=== PATIENT | female | born 1970 | race Caucasian/White ===

== ENCOUNTER 2016-08-11 22:24 | Emergency (ER) | payer OTHER ==
[~2016-08-11] VITALS: Ht 162.6 cm; Wt 77.5 kg
[~2016-08-11 22:24] MED LIST: ASPI81TA3 PO; DOCU-144 PO; ENAL20TA77 PO; FER325 PO; HYDR-3498 PO; HYDR-906 PO; IBUP-1542 PO; IBUP800T25 PO; METO-407 PO; NITR0.4T6 SL
[2016-08-11 22:26] VITALS: Ht 162.6 cm; Wt 77.5 kg
[2016-08-12] MEDS ORDERED: morphine 4 MG/ML VIAL IV STA (01:33)
[2016-08-12] MEDS ORDERED: ONDANSETRON 4 MG INJ IV STA (01:33)
[2016-08-12] MEDS ORDERED: SOD CHLORIDE 0.9% 1,000 ML IV STA (01:33)
[2016-08-12 01:46] LABS: URINE BLOOD (Dip) POC 2+ (NEGATIVE)
[2016-08-12] MEDS ORDERED: HYDROmorphONE 1 MG/ML SYG IV STA (02:47)
[2016-08-12 02:49] LABS: BASOPHILS % 0.3 % (0.0-2.0); EOSINOPHILS # 0.2 10^3/ul (0.0-0.5); EOSINOPHILS % 2.7 % (0.0-7.0); HEMATOCRIT 38.6 % (37.0-47.0); HEMOGLOBIN 12.8 g/dl (12.0-16.0); LYMPHOCYTES # 2.8 10^3/ul (0.8-2.9); LYMPHOCYTES % 38.7 % (15.0-51.0); MEAN CORPUSCULAR HEMOGLOBIN 27.1 pg (29.0-33.0); MEAN CORPUSCULAR VOLUME 81.9 fl (82.0-101.0); MEAN PLATELET VOLUME 10.6 fl (7.4-10.4); MONOCYTE # 0.6 10^3/ul (0.3-0.9); MONOCYTES % 8.3 % (0.0-11.0); NEUTROPHIL # 3.6 10^3/ul (1.6-7.5); PLATELET COUNT 168 10^3/UL (140-440); RED BLOOD COUNT 4.72 10^6/ul (4.20-5.40); RED CELL DISTRIBUTION WIDTH 15.6 % (11.5-14.5); UNCORRECTED WBC 7.2 10^3/ul (4.8-10.8); WHITE BLOOD COUNT 7.2 10^3/ul (4.8-10.8)
[2016-08-12 02:52] LABS: CONDITION 1; LH ANALYZER COMMENTS 1
--- NOTE | 2016-08-12 03:50 | RADRPT ---
PROCEDURE: US pelvis complete and transvaginal CLINICAL INDICATION: pelvic pain TECHNIQUE: Bautista scale and color Doppler imaging of the pelvis was performed. Endovaginal scanning was performed for more detailed evaluation of the endometrium. The images were reviewed on a PACS workstation. COMPARISON: 03/31/2016 FINDINGS: The uterus measures 6.4 x 3.4 x 5 centimeters. The right ovary was not seen and the left ovary anthony ures 4.7 x 2.3 x 2.3 centimeters. The endometrial stripe measures 4.6 millimeters in thickness and is unremarkable in appearance. No fibroids are seen. 3.1 x 1.9 x 1.7 cm minimally complex left ovari an cyst is seen. Cervical Nabothian cysts. Arterial flow is demonstrated in the left ovary. No vandana e fluid is seen. IMPRESSION: Nonvisualization of the right ovary. 3.1 cm left ovarian cyst. Arterial flow is demonstrated. RPTAT: [facility]BE Physician Salvador Date Time Electronically viewed and signed by Fanny Carolina Physician on 08/12/2016 03:50 JEFE/
--- NOTE | 2016-08-12 04:00 | ERD ---
ER Documentation Chief Complaint Date/Time DATE: 08/12/16 TIME: 03:55 Chief Complaint lower abd pain x 2days HPI Patient is a 46-year-old female with a past medical history of hypertension, kidney stones, DUB, appendectomy who presents to the emergency department with lower abdominal pain 2 days. Patient states that the pain is in her bilateral pelvic regions. Patient states that the pain is constant, sharp in nature, current pain is a 10 out of 10. Patient has any fevers but admits to chills. Patient is also feeling nauseous. Patient denies any upper abdominal pain, vomiting, dysuria, vaginal bleeding. Patient states that she has noted an increase in vaginal discharge. Patient describes her vaginal thick dark orange in color. Patient states that she does have a history of dysfunctional uterine bleeding. She was on Depo-Provera for 6 months and recently stopped in May 2016. Patient states that she was told that her VETERINARY ATTENDANT that she will need to have a hysterectomy, but she is unsure why. Patient states her LNMP was in June 2016, irregular periods. Patient denies any chest pain, shortness of breath, diaphoresis, arm pain, jaw pain or loss of consciousness. ROS All systems reviewed and are negative except as per history of present illness. Medications Home Meds Active Scripts Ondansetron (Ondansetron Odt) 4 Mg Tab.rapdis, 4 MG PO Q6H Y for NAUSEA AND/OR VOMITING, #10 TAB Prov:SALMA BOLAÑOS PA-C 08/12/16 Ibuprofen* (Ibuprofen*) 600 Mg Tablet, 600 MG PO Q6, #20 TAB Prov:SALMA BOLAÑOS PA-C 08/12/16 Ibuprofen* (Motrin*) 600 Mg Tab, 600 MG PO Q6H Y for PAIN AND OR ELEVATED TEMP, #30 TAB Prov:WENDY LARA NP 03/31/16 Docusate Sodium* (Colace*) 100 Mg Capsule, 100 MG PO BID, #60 CAP Prov:WENDY LARA NP 03/31/16 Ferrous Sulfate* (Ferrous Sulfate*) 325 Mg Tabec, 325 MG PO BID, #60 TAB Prov:WENDY LARA NP 03/31/16 Hydrocodone/Acetaminophen ([place] 5-325 Tablet) 1 Each Tablet, 1 TAB PO Q6H Y for PAIN, #20 TAB Prov:WENDY LARA [employer] 03/31/16 Ibuprofen* (Motrin*) 600 Mg Tab, 600 MG PO Q6H Y for PAIN AND OR ELEVATED TEMP, #30 TAB Prov:WENDY LARA. [employer] 09/30/15 Hydrocodone Bit-Acetaminophen* ([place]*) 5-325 Mg Tab, 1 TAB PO Q4H Y for sev, # 20 TAB Prov:WENDY LARA [employer] 09/30/15 Ibuprofen* (Motrin*) 800 Mg Tab, 800 MG PO Q6, #20 TAB Prov:NELLIE GAYTAN MD 04/10/15 Reported Medications Nitroglycerin* (Nitroglycerin* SL) 0.4 Mg Tab.subl, 0.4 MG SL Q5MIN Y for CHEST PAIN, BOTTLE 09/22/15 Metoprolol Tartrate* (Lopressor*) 100 Mg Tablet, 100 MG PO BID, #60 TAB 09/22/15 Aspirin* (Aspirin* Chew) 81 Mg Tab.chew, 81 MG PO DAILY, TAB.CHEW 04/24/14 Enalapril (Enalapril) 20 Mg Tablet, 20 MG PO DAILY 09/29/11 Allergies Allergies: Coded Allergies: No Known Allergies (Verified Allergy, Mild, 04/24/14) PMhx/Soc History of Surgery: Yes (Borderline DM) Anesthesia Reaction: No Hx Neurological Disorder: No Hx Respiratory Disorders: No Hx Cardiac Disorders: Yes (HEART PALPATATIONS, HTN ) Hx Psychiatric Problems: No Hx Miscellaneous Medical Probl: Yes (Dysfunctional Uterine bleeding ) Hx Alcohol Use: No Hx Substance Use: No Hx Tobacco Use: No Smoking Status: Never smoker FmHx Family History: No diabetes Physical Exam Vitals Vital Signs Date Time Temp Pulse Resp B/P Pulse Ox O2 Delivery O2 Flow Rate FiO2 08/12/16 04:47 97.8 70 18 128/80 96 Room Air 08/11/16 22:26 98.2 91 20 155/94 99 Physical Exam GENERAL: Well-developed, well-nourished female. No acute distress HEAD: Normocephalic, atraumatic. EYES: Pupils are equally reactive bilaterally. EOMs grossly intact. No conjunctival erythema. ENT: Moist mucous membranes. No uvula deviation. No kissing tonsils. NECK: Supple. No lymphadenopathy or thyromegaly. No meningismus. LUNG: Clear to auscultation bilaterally. No rhonchi, wheezing, rales or coarse breath sounds. HEART: Regular rate and rhythm. No murmurs, rubs or gallops. ABDOMEN: No scars, ecchymosis or rashes noted. Soft and nondistended. Tender to palpation in bilateral lower pelvic regions. Positive bowel sounds in all four quadrants. No rebound tenderness, no guarding. (-) McBurneys point tenderness. No CVA tenderness. BACK: No midline tenderness. EXTREMITIES: Equal pulses bilaterally. No peripheral clubbing, cyanosis or edema. No unilateral leg swelling. NEUROLOGIC: Alert and oriented. Moving all four extremities without any difficulty. Normal speech. Steady gait. SKIN: Normal color. Warm and dry. No rashes or lesions. Result Diagram: 08/12/16 0154 Results 24 hrs Laboratory Tests Test 08/12/16 01:46 08/12/16 01:54 Bedside Urine Blood 2+ Bedside Urine Glucose (UA) Negative Bedside Urine Ketones (LAB) Negative Bedside Urine Leukocyte Esterase (L Negative Bedside Urine Nitrite (LAB) Negative Bedside Urine Protein (LAB) Negative Bedside Urine pH (LAB) 7.0 Basophils # 0.010^3/ul Basophils % 0.3% Blood Morphology Comment Eosinophils # 0.210^3/ul Eosinophils % 2.7% Hematocrit 38.6% Hemoglobin 12.8g/dl Lymphocytes # 2.810^3/ul Lymphocytes % 38.7% Mean Corpuscular Hemoglobin 27.1pg Mean Corpuscular Hemoglobin Concent 33.0g/dl Mean Corpuscular Volume 81.9fl Mean Platelet Volume 10.6fl Monocytes # 0.610^3/ul Monocytes % 8.3% Neutrophils # 3.610^3/ul Neutrophils % 50.0% Nucleated Red Blood Cells # 0.010^3/ul Nucleated Red Blood Cells % 0.0/100WBC Platelet Count 22406^3/UL Red Blood Count 4.7210^6/ul Red Cell Distribution Width 15.6% White Blood Count 7.210^3/ul Current Medications Medications (Trade) Dose Ordered Sig/Roel Route PRN Reason Start Time Stop Time Status Last Admin Dose Admin Sodium Chloride (NS) 1,000 ml @ 500 mls/hr Q2H STAT IV 08/12/16 01:33 08/12/16 03:32 DC 08/12/16 01:53 Morphine Sulfate (morphine) 4 mg ONCE STAT IV 08/12/16 01:33 08/12/16 01:36 DC 08/12/16 01:54 Ondansetron HCl (Zofran Inj) 4 mg ONCE STAT IV 08/12/16 01:33 08/12/16 01:36 DC 08/12/16 01:54 Hydromorphone HCl (Dilaudid) 1 mg ONCE STAT IV 08/12/16 02:47 08/12/16 02:49 DC 08/12/16 02:55 Procedures/MDM ED COURSE: The patient was stable throughout ED course. I kept the patient and/or family informed of laboratory and diagnostic imaging results throughout the ED course. DIAGNOSTIC IMAGING: Read by radiologist. DIAGNOSTIC IMAGING REPORT Patient: VALENTINE DENNIS : 1970 Age: 46 Sex: F MR #: [id number] DOS: 08/12/16 0133 Ordering MD: SALMA BOLAÑOS PA-C Location: [facility] Room/Bed: PROCEDURE: US pelvis complete and transvaginal CLINICAL INDICATION: pelvic pain TECHNIQUE: Bautista scale and color Doppler imaging of the pelvis was performed. Endovaginal scanning was performed for more detailed evaluation of the endometrium. The images were reviewed on a PACS workstation. COMPARISON: 03/31/2016 FINDINGS: The uterus measures 6.4 x 3.4 x 5 centimeters. The right ovary was not seen and the left ovary measures 4.7 x 2.3 x 2.3 centimeters. The endometrial stripe measures 4.6 millimeters in thickness and is unremarkable in appearance. No fibroids are seen. 3.1 x 1.9 x 1.7 cm minimally complex left ovarian cyst is seen. Cervical Nabothian cysts. Arterial flow is demonstrated in the left ovary. No free fluid is seen. IMPRESSION: Nonvisualization of the right ovary. 3.1 cm left ovarian cyst. Arterial flow is demonstrated. RPTAT: [facility] Physician Salvador Date Time Electronically viewed and signed by Fanny Carolina Physician on 08/12/2016 03 :50 LE/ CC: SALMA BOLAÑOS PA-C MEDICATIONS GIVEN: IV fluids, Morphine, Dilaudid, Zofran Patient tolerated medication well with no adverse reactions. Patient reported improvement in pain. MEDICAL DECISION MAKING: This is 46-year-old female with a past medical history of hypertension, kidney stones, DUB, appendectomy who presents to the emergency department with lower abdominal pain 2 days. Vital signs were reviewed. Patient is afebrile. Abdominal exam revealed tenderness to palpation in bilateral pelvic regions. CBC showed no evidence of systemic infection or severe anemia. UA showed no evidence of acute infection, 2+ blood. Low suspicion for UTI, pyelonephritis or nephrolithiasis. Pelvic US showed 3.1 cm left ovarian cyst. Arterial flow is demonstrated. At this time, patient's presentation is most consistent with left ovarian cyst. I have a much lower clinical concern for acute coronary syndrome, bowel obstruction, bowel perforation, cholecystitis, choledocholithiasis, pancreatitis, PUD, gastritis, GERD, splenic rupture, diverticulitis, UTI, pyelonephritis, nephrolithiasis, appendicitis, constipation, , ovarian torsion or tubo-ovarian abscess. PRESCRIPTIONS: Ibuprofen, Zofran DISCHARGE: At this time, patient is stable for discharge and outpatient management. I have instructed the patient to follow-up with his/her primary care physician/ OBGYN in 1-2 days. I have instructed the patient to promptly return to the ER at any time for any new or worsening symptoms including increased pain, nausea, vomiting, diarrhea, fever, weakness or LOC. The patient and/or family expressed understanding of and agreement with this plan. All questions were answered. Home care instructions were provided. Departure Diagnosis: Primary Impression: Ovarian cyst Laterality: left Qualified Code: N83.202 - Cyst of left ovary Additional Impression: Pelvic pain Condition: Stable Patient Instructions: Ovarian Cyst Referrals: [facility] VETERINARY ATTENDANT REFERRAL LIST Additional Instructions: Call your PCP/OBGYN tomorrow for an appointment in the next 1-2 days. Return to the ED for any new or worsening symptoms including severe pain, fever, chills, nausea, vomiting. SALMA BOLAÑOS PA-C Aug 12, 2016 04:00
[2016-08-12] MEDS ORDERED: IBUP-1542 PO (04:01)
[2016-08-12] MEDS ORDERED: ONDA4TAB14 PO (04:02)
[2016-08-12 04:47] VITALS: BP 128/80; PULSE 70; RESP 18; TEMP 97.8
== END 2016-08-12 04:48 | disposition home or self-care (01) ==
LOC: FTE 22:24
DX: N83.202 Unspecified ovarian cyst, left side (principal); I10 Essential (primary) hypertension; Z79.82 Long term (current) use of aspirin
CPT/HCPCS: 36415; 76830; 76856; 81003; 85025; 96374; 96375; J1170; J2270; J2405; J7030; Z7502

== ENCOUNTER 2016-10-05 16:00 | Inpatient (IN) | payer OTHER ==
[~2016-10-05] VITALS: Ht 160 cm; Wt 76.4 kg
[~2016-10-05 16:00] MED LIST changes: +ONDA4TAB14 PO
[2016-11-02] VITALS (23 sets, daily range): BP systolic 106–136; BP diastolic 65–86; PULSE 62–107; RESP 10–20; Ht 160 cm; Wt 76.4 kg
--- NOTE | 2016-11-02 06:27 | PREOPHP ---
DATE OF ADMISSION: 11/02/2016 HISTORY OF PRESENT ILLNESS: This is a 46-year-old lady, 4, para 4, her last normal menstrual period was a few days prior to admission. She was admitted for MARGE and BSO. This patient has a history of very heavy menstrual period and on and off vaginal bleeding for the last 1 year and getting worse up to the time of admission. She had endometrial biopsy done and endometrial biopsy was benign. At one point, she was put on Depo-Provera to control the bleeding. She wanted to go for the above procedure. Her FSH were menopausal level and she had an abnormal Pap smear before, so she is for MARGE and BSO. She is having lower abdominal pain for the last 1 year, as well and the lower back and lower abdomen and to the legs. The procedures were explained to the patient and she understood everything totally. The risk, benefit and alternative was discussed with her as well. PAST PERSONAL HISTORY: No history of diabetes, TB, asthma. ALLERGIES: NO ALLERGIES. SOCIAL HISTORY: Patient does not smoke. She does not drink. MEDICATIONS: She takes enapril 20 mg daily. GYNECOLOGIC HISTORY: She had menarche at the age of 10, every 28 days interval , 3 to 4 days duration, and moderate in amount. FAMILY HISTORY: Mother has high blood pressure and diabetes. Brother and sister had cancer. PAST SURGICAL HISTORY: She had 1 section done before. That is the first . The other 3 were normal. REVIEW OF SYSTEMS: CARDIOVASCULAR: No chest pains. RESPIRATORY: No cough. GASTROINTESTINAL: No diarrhea, no vomiting. GENITOURINARY: No dysuria. PHYSICAL EXAMINATION: GENERAL: Reveals a conscious coherent lady and in not acute distress. VITAL SIGNS: Her blood pressure 120/80, pulse rate 80 per minute, respirations 16 per minute. BREASTS: Within normal limits. HEART: Within normal limits. LUNGS: Within normal limits. ABDOMEN: Soft. No organomegaly. PELVIC: Revealed the cervix to be firm, uterus of normal size, and adnexa were negative for masses. RECTAL: Confirmed the pelvic findings. EXTREMITIES: No pedal edema. ADMITTING DIAGNOSIS: Chronic pelvic pain and menometrorrhagia. PLAN: The patient was planned to have the above procedure. The procedures were explained to her and she understood everything totally. The risk, benefit and alternative were discussed with her as well. Dictated By: GERALD TRENT/ENRIQUETA Conf#: [id number] DID#: [id number] MTDD
[2016-11-02] MEDS ORDERED: DILT120C79 PO (07:15)
[2016-11-02] MEDS ORDERED: LIDOCAINE 2% (SDV) 5 ML INJ ONE (07:25)
[2016-11-02] MEDS ORDERED: PROPOFOL 20 ML ONE (07:25)
[2016-11-02] MEDS ORDERED: SUCCINYLCHOLINE CHLORIDE 100 MG/5 ML SYG IV ONE (07:25)
[2016-11-02] MEDS ORDERED: NEOSTIGMINE 3 MG/3 ML SYRINGE ONE ×2 (07:25→08:11)
[2016-11-02] MEDS ORDERED: ROCURONIUM 50 MG INJ ONE ×2 (07:25→08:11)
[2016-11-02] MEDS ORDERED: GLYCOPYRROLATE 0.4 MG INJ ONE ×2 (07:25→08:11)
[2016-11-02] MEDS ORDERED: MEPERIDINE 100 MG INJ ONE (07:26)
[2016-11-02] MEDS ORDERED: morphine (1 MG/ML) 10ML SYRINGE IV PRN ×2 (08:00)
[2016-11-02] MEDS ORDERED: DIPHENHYDRAMINE 50 MG INJ IV PRN ×2 (08:00→09:30)
[2016-11-02] MEDS ORDERED: EPHEDrine SULFATE 50 MG/5 ML SYG IV PRN (08:00)
[2016-11-02] MEDS ORDERED: METOCLOPRAMIDE 10 MG INJ IV PRN (08:00)
[2016-11-02] MEDS ORDERED: LABETALOL HCL 20MG INJ IV PRN (08:00)
[2016-11-02] MEDS ORDERED: MEPERIDINE 25 MG INJ IV PRN (08:00)
[2016-11-02] MEDS ORDERED: MIDAZOLAM 1 MG/ML 2 ML INJ IV PRN (08:00)
[2016-11-02] MEDS ORDERED: ONDANSETRON 4 MG INJ IV PRN ×2 (08:00→10:00)
[2016-11-02] MEDS ORDERED: hydrALAzine 20 MG INJ IV PRN (08:00)
[2016-11-02] MEDS ORDERED: HYDROmorphONE (0.2 MG/ML) 10ML SYG IV PRN (08:00)
[2016-11-02] MEDS ORDERED: FENTAnyl 50 MCG/ML VIAL IV PRN (08:00)
[2016-11-02] MEDS ORDERED: METOCLOPRAMIDE 10 MG INJ ONE (08:17)
[2016-11-02] MEDS ORDERED: EPHEDrine SULFATE 50 MG/5 ML SYG ONE (08:17)
[2016-11-02] MEDS ORDERED: ONDANSETRON 4 MG INJ ONE (08:17)
[2016-11-02] MEDS ORDERED: OXYCODONE/ACETAMINOPHEN (5/325) TAB PO PRN ×2 (09:30)
[2016-11-02] MEDS ORDERED: morphine 1 MG/ML 30 ML (PCA) IV SCH (09:30)
[2016-11-02] MEDS ORDERED: NALOXONE (0.4 MG/ML) INJ IV PRN (09:30)
[2016-11-02] MEDS: HYDROmorphONE (0.2 MG/ML) 10ML SYG IV PRN ×5 (09:37→10:35)
[2016-11-02] MEDS: FENTAnyl 50 MCG/ML VIAL IV PRN ×2 (09:47→10:04)
[2016-11-02] MEDS ORDERED: BISACODYL 10 MG SUPP PR PRN (10:00)
[2016-11-03 00:56] VITALS: BP 122/66; RESP 18
[2016-11-03 04:51] VITALS: BP 133/75; PULSE 102; RESP 19
[2016-11-03 05:11] LABS: ADD SCAN DIFF NO
[2016-11-03 05:20] LABS: BASOPHILS % 0.1 % (0.0-2.0); EOSINOPHILS % 0.2 % (0.0-7.0); HEMATOCRIT 38.4 % (37.0-47.0); HEMOGLOBIN 12.2 g/dl (12.0-16.0); LYMPHOCYTES # 1.5 10^3/ul (0.8-2.9); LYMPHOCYTES % 14.5 % (15.0-51.0); MEAN CORPUSCULAR HEMOGLOBIN 26.8 pg (29.0-33.0); MEAN CORPUSCULAR HGB CONC 31.8 g/dl (32.0-37.0); MEAN CORPUSCULAR VOLUME 84.4 fl (82.0-101.0); MEAN PLATELET VOLUME 11.9 fl (7.4-10.4); MONOCYTE # 0.9 10^3/ul (0.3-0.9); MONOCYTES % 8.5 % (0.0-11.0); NEUTROPHIL # 8.1 10^3/ul (1.6-7.5); NEUTROPHILS % 76.4 % (39.0-77.0); PLATELET COUNT 170 10^3/UL (140-415); RED BLOOD COUNT 4.55 10^6/ul (4.20-5.40); RED CELL DISTRIBUTION WIDTH 15.3 % (11.5-14.5); WHITE BLOOD COUNT 10.6 10^3/ul (4.8-10.8)
[2016-11-03 05:28] LABS: ALBUMIN 3.7 g/dl (3.3-4.9)
[2016-11-03 05:29] LABS: POTASSIUM 3.7 mmol/L (3.5-5.1)
[2016-11-03 05:31] LABS: ALBUMIN/GLOBULIN RATIO 1.12; BILIRUBIN,INDIRECT 0.5 mg/dl (0-1.1); BILIRUBIN,TOTAL 0.5 mg/dl (0.2-1.3); CREATININE 0.73 mg/dl (0.44-1.00)
[2016-11-03 05:32] LABS: CALCIUM 8.7 mg/dl (8.4-10.2)
[2016-11-03 07:43] VITALS: BP 124/74; RESP 20
[2016-11-03] MEDS: MAGNESIUM HYDROXIDE 30ML CUP PO SCH ×2 (09:11→21:31)
[2016-11-03] MEDS ORDERED: OXYCODONE/ACETAMINOPHEN (5/325) TAB PO PRN ×2 (10:00)
[2016-11-03] MEDS ORDERED: BISACODYL 10 MG SUPP PR ONE (12:00)
[2016-11-03] MEDS: ONDANSETRON 4 MG INJ IV PRN ×2 (13:48→20:07)
[2016-11-03] MEDS: OXYCODONE/ACETAMINOPHEN (5/325) TAB PO PRN (13:48)
[2016-11-03] MEDS ORDERED: MAGNESIUM HYDROXIDE 30ML CUP PO SCH (17:00)
[2016-11-03] MEDS ORDERED: BISACODYL 10 MG SUPP PR SCH (17:00)
[2016-11-03] MEDS: KETOROLAC 30 MG INJ IV PRN (17:14)
[2016-11-03 20:29] VITALS: BP 118/73; RESP 20
[2016-11-04] MEDS: KETOROLAC 30 MG INJ IV PRN ×2 (04:12→11:18)
--- NOTE | 2016-11-04 05:43 | OPR ---
DATE OF OPERATION: 11/02/2016 PREOPERATIVE DIAGNOSES: 1. Chronic pelvic pain. 2. Menorrhagia. 3. Perineal relaxation. POSTOPERATIVE DIAGNOSES: 1. Severe pelvic and abdominal adhesions. 2. Chronic pelvic pain. 3. Menorrhagia. 4. Perineal relaxation. SURGEON: Gerald Joshua MD BELLMAN DRIVER: Dr. Centeno ANESTHESIA: General. OPERATIONS PERFORMED: 1. Exploratory laparotomy. 2. Total abdominal hysterectomy. 3. Bilateral salpingo-oophorectomy. 4. Vaginal vault suspension. 5. Lysis of severe pelvic and abdominal adhesions. OPERATIVE TECHNIQUE: Under general anesthesia, the patient was prepped and draped in the usual [facility] ion for abdominal surgery. After checking for the effect of the anesthesia, a Pfannenstiel incision , 14 cm skin incision, was performed. The incision was carried from the skin up to the fascia. Upo n opening the skin up to the fascia, small blood vessels were noted to be oozing, and these were all cauterized. Fascia was opened transversely followed by splitting the muscles vertically and the pe ritoneum vertically. Upon opening the abdominal cavity, the omentum was noted to be attached all ov er the anterior parietal peritoneum. All these adhesions were lysed by sharp and blunt dissection d own both tubes and ovaries on the left and right side where they were attached to the pelvic wall. All these adhesions were lysed by sharp and blunt dissection. Then the self-retaining retractor was put in place. The bladder blade was put in place. The bowels were packed away from the operative field with the aid of 6 wet lap sponges. Then, the upper blade was put in place. Then, the two 8 i nch Kochers were placed at the paraovarian and paratubal ligament on the left and right side. These were used for traction. Then the left round ligament was grasped with 2 Kochers and cut. A stick tie with 0 Vicryl was used and tagged. The left infundibulopelvic ligament was grasped with 2 Heane y clamps and pulled back with a straight Mary and cut. A stick tie with 0 Vicryl was used followe d by Gian suture. Bleeders were checked, and there was no bleeding noted. Same thing was done on the right side. The right round ligament was grasped with 2 Kochers and cut. Stick tie with 0 Renan ryl was used and tagged. The right infundibulopelvic ligament was grasped with 2 Gian clamps and pulled back with a straight Mary and cut. At first a free tie with 0 Vicryl was used followed by Gian suture. Bleeders were checked, and there was no bleeding noted. Then, the broad ligament on both sides was skeletonized for the development of the bladder flap. Then the left uterine vessels were grasped with 2 Gian clamps and pulled back with a straight Mary and cut. A stick tie with 0 Vicryl was used on its clamp. Bleeders were checked, and there was no bleeding noted. Same thin g was done on the right side. Once again, the bladder was from the cervix by sharp and bl unt dissection. About 5 Kochers were placed at the site of the cervix, and on each Mary the tissu e was cut and a stick tie with 0 Vicryl was used. Then the cervix was noted to be long, about 3 inc hes long. Then the body of the uterus was excised. The remaining cervix was grasped with 2 single tooth tenaculum. Then, after putting 5 Kochers at the cervical tissue on each side, then the tissue was cut and a stick tie with 0 Vicryl was used. A piece of cervix was excised, and the remaining c ervix was grasped with 2 single toothed tenaculums. Then, once again, the cervix was from the bladder by sharp and blunt dissection. About 4 more Kochers at each paracervical tissue on the left and right side, and on its clamp, the tissue was cut and a stick tie with 0 Vicryl was used. Then, the cervicovaginal angle was brought to view. Then, the uterosacral ligament on the left chiki e was grasped with the Mary and cut. A stick tie with 0 Vicryl was used and tied. The same thing was done on the right side. Then, the cervix was cut again. As mentioned, the pelvis was noted to be very deep. Another piece of cervix was excised, and the remaining cervix was grasped with 2 sin gle tooth tenaculum. Then, the cervicovaginal angle was brought to view. The cervicovaginal angle was grasped with 2 Gian clamps, and the cervix was excised. On its clamp, a Gian suture was put in. Bleeders were checked, and there was no bleeding noted. Then, the remaining vagina was suture d with 0 Vicryl continuous suture used to reinforce the suture on 2 Gian clamps. The right angle of the vagina was sutured with the right paracervical tissue and in turn tied with the right round l igament for vaginal vault suspension. The same thing was done on the left side. Irrigation was don e to check for any bleeders, and there was no bleeding noted. After checking for any bleeders in wh ich there were none, as mentioned, both angles of the vagina were sutured with the paracervical tiss ue and in turn tied with the right round ligament, and so vaginal vault suspension was done on both sides. After checking for any bleeders in which there were none and after correct sponge count, nee dle count, and instrument count, the abdomen was closed in the usual fashion using 0 Vicryl for the peritoneum, 0 Vicryl for the muscles, for the fascia 0 Vicryl continuous stitch was used followed by a few [id number] sutures. For the subcutaneous tissue, it was closed with 3-0 Vicryl. The sk in was closed with 3-0 Vicryl. Subcuticular suture was used. The patient tolerated the procedure w ell. Estimated blood loss was about 200 mL. Vital signs were stable during and after the procedure . Dictated By: GERALD TRENT/ENRIQUETA Conf#: [id number] DID#: [id number] CC: GERALD OJSHUA MD;*EndCC*
[2016-11-04 07:40] VITALS: BP 132/76; RESP 20
[2016-11-04] MEDS: MAGNESIUM HYDROXIDE 30ML CUP PO SCH (09:00)
[2016-11-04] MEDS: DILTIAZEM (CD) 120 MG CAP PO SCH (09:12)
[2016-11-04] MEDS: METOPROLOL 100 MG TAB PO SCH ×2 (09:13→21:00)
[2016-11-04 09:45] VITALS: BP 124/78; PULSE 100; RESP 18
[2016-11-04] MEDS: ENALAPRIL 20 MG TAB PO SCH (10:02)
[2016-11-04 10:29] LABS: ADD SCAN DIFF NO; BASOPHILS % 0.2 % (0.0-2.0); EOSINOPHILS # 0.1 10^3/ul (0.0-0.5); EOSINOPHILS % 0.7 % (0.0-7.0); HEMATOCRIT 35.3 % (37.0-47.0); HEMOGLOBIN 11.8 g/dl (12.0-16.0); LYMPHOCYTES # 1.6 10^3/ul (0.8-2.9); LYMPHOCYTES % 16.4 % (15.0-51.0); MEAN CORPUSCULAR HEMOGLOBIN 28.1 pg (29.0-33.0); MEAN CORPUSCULAR HGB CONC 33.4 g/dl (32.0-37.0); MEAN PLATELET VOLUME 11.3 fl (7.4-10.4); MONOCYTES % 10.1 % (0.0-11.0); NEUTROPHIL # 6.9 10^3/ul (1.6-7.5); NEUTROPHILS % 72.2 % (39.0-77.0); PLATELET COUNT 153 10^3/UL (140-415); RED CELL DISTRIBUTION WIDTH 15.1 % (11.5-14.5); WHITE BLOOD COUNT 9.6 10^3/ul (4.8-10.8)
[2016-11-04 13:12] VITALS: BP 105/64; RESP 20
[2016-11-04] MEDS: OXYCODONE/ACETAMINOPHEN (5/325) TAB PO PRN (14:31)
[2016-11-04 19:40] VITALS: BP 117/74; RESP 18
[2016-11-05] MEDS: KETOROLAC 30 MG INJ IV PRN (05:23)
[2016-11-05 08:45] VITALS: BP 115/75; RESP 18
[2016-11-05] MEDS: DILTIAZEM (CD) 120 MG CAP PO SCH (09:11)
[2016-11-05] MEDS: ENALAPRIL 20 MG TAB PO SCH (09:12)
[2016-11-05] MEDS: METOPROLOL 100 MG TAB PO SCH (09:12)
[2016-11-05] MEDS ORDERED: BISACODYL 10 MG SUPP PR ONE (12:30)
[2016-11-05] MEDS ORDERED: MAGNESIUM HYDROXIDE 30ML CUP PO ONE (12:30)
[2016-11-05 13:10] LABS: ADD SCAN DIFF NO
[2016-11-05 13:19] LABS: BASOPHILS % 0.4 % (0.0-2.0); EOSINOPHILS # 0.3 10^3/ul (0.0-0.5); EOSINOPHILS % 2.5 % (0.0-7.0); HEMATOCRIT 38.6 % (37.0-47.0); HEMOGLOBIN 12.2 g/dl (12.0-16.0); LYMPHOCYTES # 2.3 10^3/ul (0.8-2.9); LYMPHOCYTES % 21.5 % (15.0-51.0); MEAN CORPUSCULAR HEMOGLOBIN 27.1 pg (29.0-33.0); MEAN CORPUSCULAR HGB CONC 31.6 g/dl (32.0-37.0); MEAN CORPUSCULAR VOLUME 85.8 fl (82.0-101.0); MEAN PLATELET VOLUME 11.3 fl (7.4-10.4); MONOCYTE # 0.8 10^3/ul (0.3-0.9); MONOCYTES % 7.9 % (0.0-11.0); NEUTROPHIL # 7.1 10^3/ul (1.6-7.5); NEUTROPHILS % 67.4 % (39.0-77.0); PLATELET COUNT 203 10^3/UL (140-415); RED CELL DISTRIBUTION WIDTH 15.2 % (11.5-14.5); WHITE BLOOD COUNT 10.5 10^3/ul (4.8-10.8)
[2016-11-05 13:25] LABS: POTASSIUM 3.6 mmol/L (3.5-5.1)
[2016-11-05 13:27] LABS: CREATININE 0.95 mg/dl (0.44-1.00)
[2016-11-05 13:28] LABS: CALCIUM 9.6 mg/dl (8.4-10.2)
--- NOTE | 2016-11-07 18:28 | DS ---
DATE OF ADMISSION: 11/02/2016 DATE OF DISCHARGE: 11/05/2016 This is a 46-year-old lady, 4, para 4. She was admitted for MARGE and BSO. HISTORY OF PRESENT ILLNESS: See dictated history and physical. PHYSICAL EXAMINATION: See dictated history and physical. ADMITTING DIAGNOSIS: Chronic pelvic pain and menometrorrhagia. The patient underwent a total abdominal hysterectomy, bilateral salpingo-oophorectomy, vaginal vault suspension and lysis of severe pelvic and abdominal adhesions. Patient tolerated the procedure well. She did have good postoperative course. The diet was advanced from liquid to general diet. She was discharged home on the third postoperative day on general diet and activity was restricted. She was told to come back to the clinic in 2 weeks. She was given prescription for pain. She was told to call the office if there is any problem or concern. FINAL DIAGNOSES: 1. moderate obesity 2. Chronic pelvic pain. 3. Adenomyosis. Dictated By: GERALD TRENT/ENRIQUETA Conf#: [id number] DID#: [id number] MTDJack
== END 2016-11-05 17:30 | disposition home or self-care (01) | DRG 743 ==
LOC: REC 11-02 05:54 → MS1 11-02 11:17
PROVIDERS: ADMIT Obstetrics & Gynecology; ATTEND Obstetrics & Gynecology
PROC: 0UTC0ZZ Resection of Cervix, Open Approach (ICD-10-PCS; 2016-11-02)
PROC: 0UT20ZZ Resection of Bilateral Ovaries, Open Approach (ICD-10-PCS; 2016-11-02)
PROC: 0UT70ZZ Resection of Bilateral Fallopian Tubes, Open Approach (ICD-10-PCS; 2016-11-02)
PROC: 0USG0ZZ Reposition Vagina, Open Approach (ICD-10-PCS; 2016-11-02)
PROC: 0UT90ZZ Resection of Uterus, Open Approach (ICD-10-PCS; principal; 2016-11-02 07:30)
DX: N92.0 Excessive and frequent menstruation with regular cycle (principal); R10.2 Pelvic and perineal pain; N81.89 Other female genital prolapse
CPT/HCPCS: 80048; 80053; 84702; 85025; 86850; 86900; 86901; 87086; 88305; J0330; J1170; J1885; J2175; J2270; J2405; J2710; J2765; J3010

== ENCOUNTER 2016-11-30 14:24 | Emergency (ER) | payer OTHER ==
[~2016-11-30] VITALS: Ht 160 cm; Wt 75.5 kg
[~2016-11-30 14:24] MED LIST changes: -ASPI81TA3 PO; +DILT120C79 PO; -DOCU-144 PO; -FER325 PO; -HYDR-3498 PO; -HYDR-906 PO; -IBUP-1542 PO; -IBUP800T25 PO; -NITR0.4T6 SL; -ONDA4TAB14 PO
[2016-11-30 15:14] VITALS: Ht 160 cm; Wt 75.5 kg
[2016-11-30] MEDS ORDERED: SODIUM CHLORIDE 0.9% 1L BAG IV* STA (18:05)
[2016-11-30] MEDS ORDERED: PIPER-TAZO 3.375 GM IV (PMX) 100 ML IVPB STA (18:05)
[2016-11-30] MEDS ORDERED: VANCOMYCIN 1 GM (PMX) 250 ML IVPB STA (18:05)
[2016-11-30 18:29] LABS: ADD SCAN DIFF NO
[2016-11-30 18:31] LABS: BASOPHILS % 0.3 % (0.0-2.0); EOSINOPHILS # 0.3 10^3/ul (0.0-0.5); EOSINOPHILS % 4.5 % (0.0-7.0); HEMATOCRIT 38.3 % (37.0-47.0); HEMOGLOBIN 12.6 g/dl (12.0-16.0); LYMPHOCYTES # 2.2 10^3/ul (0.8-2.9); LYMPHOCYTES % 37.2 % (15.0-51.0); MEAN CORPUSCULAR HGB CONC 32.9 g/dl (32.0-37.0); MEAN CORPUSCULAR VOLUME 85.1 fl (82.0-101.0); MEAN PLATELET VOLUME 11.7 fl (7.4-10.4); MONOCYTE # 0.5 10^3/ul (0.3-0.9); MONOCYTES % 7.8 % (0.0-11.0); PLATELET COUNT 177 10^3/UL (140-415); RED CELL DISTRIBUTION WIDTH 14.6 % (11.5-14.5)
[2016-11-30 18:40] LABS: ADD UMIC YES; URINE BILIRUBIN (Dip) NEGATIVE (NEGATIVE); URINE BLOOD (Dip) 2+ (NEGATIVE); URINE COLOR LT. YELLOW (YELLOW); URINE GLUCOSE (Dip) NEGATIVE (NEGATIVE); URINE KETONES (Dip) NEGATIVE (NEGATIVE); URINE LEUKOCYTE ESTERASE (Dip) NEGATIVE (NEGATIVE); URINE NITRITE (Dip) NEGATIVE (NEGATIVE); URINE TOTAL PROTEIN (Dip) NEGATIVE (NEGATIVE); URINE UROBILINOGEN (Dip) 0.2 E.U./dL (0.1-1.0)
[2016-11-30 18:46] LABS: ALBUMIN 4.5 g/dl (3.3-4.9); ALBUMIN/GLOBULIN RATIO 1.25; BILIRUBIN,INDIRECT 0.1 mg/dl (0-1.1); BILIRUBIN,TOTAL 0.1 mg/dl (0.2-1.3); CALCIUM 9.6 mg/dl (8.4-10.2); CREATININE 0.72 mg/dl (0.44-1.00); POTASSIUM 4.2 mmol/L (3.5-5.1); TOTAL PROTEIN 8.1 g/dl (6.1-8.1)
[2016-11-30 18:58] LABS: SQUAMOUS EPITHELIAL CELL,UR MODERATE
[2016-11-30 18:59] LABS: BACTERIA,URINE MANY; MUCUS,URINE MANY
[2016-11-30 19:00] VITALS: TEMP 98.6
[2016-11-30] MEDS ORDERED: morphine 4 MG/ML VIAL IV STA (19:10)
[2016-11-30 19:12] LABS: INR 1.02; PARTIAL THROMBOPLASTIN TIME 28.5 Sec (25.0-35.0); PROTIME 13.4 Sec (12.2-14.2)
[2016-11-30] MEDS ORDERED: SOD CHLORIDE 0.9% 100 ML ONE (20:07)
[2016-11-30] MEDS ORDERED: IOHEXOL 300MG/ML 150 ML BTL ONE (20:07)
--- NOTE | 2016-11-30 20:30 | ERD ---
ER Documentation Chief Complaint Date/Time DATE: 11/30/16 TIME: 20:22 Chief Complaint Pt with surgical incision pain after hysterectomy on 11/02/16. HPI 46-year-old female with a history of hypertension and endometriosis status post total abdominal hysterectomy on November 02, 2016 presenting with pain around her surgical site. She has had this pain for about 2 weeks. Pain is constant, nonradiating, dull and aching, sometimes sharp, worse with movement or straining with bowel movement, does not improve with anything. She does not have any associated hematuria or dysuria. She was seen by her surgeon 1 week ago for this pain and was told she had a mild infection and was given antibiotics, Cipro, which she took for 1 week. She has 1 dose left. However she does not feel like she has improved. She continues to have intermittent fevers and chills. She has mild nausea but no vomiting. She denies diarrhea, constipation, hematochezia, or melena. No vaginal discharge or bleeding. ROS All systems reviewed and are negative except as per history of present illness. Medications Home Meds Active Scripts Cephalexin* (Keflex*) 500 Mg Capsule, 500 MG PO TID for 7 Days, CAP Prov:MIRLANDE YANES MD 11/30/16 Reported Medications Diltiazem Hcl* (Diltiazem XT) 120 Mg Capsule.sa, 120 MG PO DAILY, #30 CAP 11/02/16 Metoprolol Tartrate* (Lopressor*) 100 Mg Tablet, 100 MG PO BID, #60 TAB 09/22/15 Enalapril (Enalapril) 20 Mg Tablet, 20 MG PO DAILY 09/29/11 Allergies Allergies: Coded Allergies: No Known Allergies (Verified Allergy, Mild, 11/30/16) PMhx/Soc History of Surgery: Yes (C SECTION, APPENDECTOMY, COLONOSCOPY, total abdominal hysterectomy) Anesthesia Reaction: No Hx Neurological Disorder: No Hx Respiratory Disorders: No Hx Cardiac Disorders: No Hx Psychiatric Problems: No Hx Miscellaneous Medical Probl: Yes (Hypertension, endometriosis) Hx Alcohol Use: No Hx Substance Use: No Hx Tobacco Use: No Smoking Status: Never smoker FmHx Family History: No diabetes Physical Exam Vitals Vital Signs Date Time Temp Pulse Resp B/P Pulse Ox O2 Delivery O2 Flow Rate FiO2 11/30/16 19:00 98.6 84 16 119/66 100 Room Air 11/30/16 15:14 99.5 115 22 154/92 99 Physical Exam Const: Well-appearing, no distress Head: Atraumatic Eyes: Normal Conjunctiva ENT: Normal External Ears, Nose and Mouth. Neck: Full range of motion..~ No meningismus. Resp: Clear to auscultation bilaterally Cardio: Regular rate and rhythm, no murmurs Abd: Surgical incision healed well. No erythema, fluctuance, induration. Soft, mild tenderness to palpation over bilateral lower quadrants over surgical incision, non distended. Normal bowel sounds Skin: No petechiae or rashes Back: No midline or flank tenderness Ext: No cyanosis, or edema Neur: Awake and alert Psych: Normal Mood and Affect Result Diagram: 11/30/16181411/30/161814 Results 24 hrs Laboratory Tests Test 11/30/16 18:00 11/30/16 18:15 Urine Color LT. YELLOW Urine Clarity SLIGHTLY CLOUDY Urine pH 5.5 Urine Specific [place] >=1.030 Urine Ketones NEGATIVE Urine Nitrite NEGATIVE Urine Bilirubin NEGATIVE Urine Urobilinogen 0.2 E.U./dL Urine Leukocyte Esterase NEGATIVE Urine Microscopic RBC 5-10/HPF Urine Microscopic WBC 0-2/HPF Urine Squamous Epithelial Cells MODERATE Urine Calcium Oxalate Crystals MANY Urine Bacteria MANY Urine Mucus MANY Urine Hemoglobin 2+ Urine Glucose NEGATIVE% Urine Total Protein NEGATIVE White Blood Count 6.010^3/ul Red Blood Count 4.5010^6/ul Hemoglobin 12.6g/dl Hematocrit 38.3% Mean Corpuscular Volume 85.1fl Mean Corpuscular Hemoglobin 28.0pg Mean Corpuscular Hemoglobin Concent 32.9g/dl Red Cell Distribution Width 14.6% Platelet Count 84007^3/UL Mean Platelet Volume 11.7fl Neutrophils % 50.0% Lymphocytes % 37.2% Monocytes % 7.8% Eosinophils % 4.5% Basophils % 0.3% Nucleated Red Blood Cells % 0.0/100WBC Neutrophils # 3.010^3/ul Lymphocytes # 2.210^3/ul Monocytes # 0.510^3/ul Eosinophils # 0.310^3/ul Basophils # 0.010^3/ul Nucleated Red Blood Cells # 0.010^3/ul Prothrombin Time 13.4Sec Prothrombin Time Ratio 1.0 INR International Normalized Ratio 1.02 Activated Partial Thromboplast Time 28.5Sec Sodium Level 138mmol/L Potassium Level 4.2mmol/L Chloride Level 105mmol/L Carbon Dioxide Level 26mmol/L Anion Gap 11 Blood Urea Nitrogen 13mg/dl Creatinine 0.72mg/dl Glucose Level 104mg/dl Lactic Acid Level 1.0mmol/L Calcium Level 9.6mg/dl Total Bilirubin 0.1mg/dl Direct Bilirubin 0.00mg/dl Indirect Bilirubin 0.1mg/dl Aspartate Amino Transf (AST/SGOT) 21IU/L Alanine Aminotransferase (ALT/SGPT) 33IU/L Alkaline Phosphatase 98IU/L Total Protein 8.1g/dl Albumin 4.5g/dl Globulin 3.60g/dl Albumin/Globulin Ratio 1.25 Current Medications Medications (Trade) Dose Ordered Sig/Roel Route PRN Reason Start Time Stop Time Status Last Admin Dose Admin Sodium Chloride 2340 ml 2,340 ml BOLUS OVER 2 HOURS STAT IV* 11/30/16 18:05 11/30/16 18:08 DC 11/30/16 18:34 Vancomycin HCl 250 ml @ 125 mls/hr ONCE STAT IVPB 11/30/16 18:05 11/30/16 20:04 DC 11/30/16 19:17 Piperacillin Sod/ Tazobactam Sod (Zosyn 3.375gm/ 100 ml (Pmx)) 100 ml @ 200 mls/hr ONCE STAT IVPB 11/30/16 18:05 11/30/16 18:34 DC 11/30/16 18:33 Morphine Sulfate (morphine) 4 mg ONCE STAT IV 11/30/16 19:10 11/30/16 19:11 DC 11/30/16 19:16 IV Flush 10 ml 10 ml STK-MED ONCE .ROUTE 11/30/16 20:07 11/30/16 20:08 DC 11/30/16 20:10 Sodium Chloride (NS) 100 ml @ ud STK-MED ONCE .ROUTE 11/30/16 20:07 11/30/16 20:08 DC 11/30/16 20:11 Iohexol (Omnipaque 300mg/ ml) 150 ml STK-MED ONCE .ROUTE 11/30/16 20:07 11/30/16 20:08 DC 11/30/16 20:11 Procedures/MDM Labs: CBC unremarkable CMP unremarkable Lactate within normal limits Urinalysis shows many bacteria, 0-2 WBCs, calcium oxalate crystals, many bacteria, 2+ hemoglobin [place] [id number] Radiology Main Line: [phone] DIAGNOSTIC IMAGING REPORT Patient: VALENTINE DENNIS : 1970 Age: 46 Sex: F MR #: [id number] DOS: 11/30/16 1805 Ordering MD: MIRLANDE YANES MD Location: E/R Room/Bed: PROCEDURE: CT Abdomen and Pelvis with contrast. CLINICAL INDICATION: Possible postop infection; hysterectomy 11/02/2016 TECHNIQUE: CT scan of the abdomen and pelvis with contrast was performed on a multi-detector high-resolution CT scanner. The patient was scanned following the intravenous administration of 100 cc of Omnipaque 300. Coronal and sagittal reformatted images were obtained from the axial source images. Images were reviewed on a high-resolution PACS workstation. The total exam CTDI equals 11.93 mGy and the total exam DLP equals 664.2 mGy-cm. One or more the following dose reduction techniques were utilized: Automated exposure control, adjustment of the mA/ or kV according to patient's size, or use of iterative reconstruction technique. COMPARISON: None. FINDINGS: CT abdomen: Mild dependent atelectasis at lung bases posteriorly. The heart size is normal , without pericardial thickening or effusion. There is approximate 3 mm oval low density structure too small to characterize in the upper dome of the liver posteriorly. No imaging follow-up of this is recommended. The spleen is normal in size and homogeneous in density. The stomach is partially collapsed, but is grossly unremarkable. The pancreas as visualized is normal. The gallbladder and biliary tree are unremarkable and there is no evidence for biliary dilatation. The adrenal glands are symmetric and normal. Nonspecific bilateral minimal hydronephrosis. No renal or ureteral stone is seen on this contrast-enhanced study. The aorta is of normal caliber. There is no retroperitoneal lymphadenopathy. The josh hepatis region is clear. The bowel and mesentery, as visualized, are equally unremarkable. Very small umbilical hernia containing fat only. CT pelvis: The small bowel loops situated within the pelvis are unremarkable. Hysterectomy. The pelvic sidewalls and inguinal regions are clear. The sigmoid colon and rectum are unremarkable. No mass, lymphadenopathy, or free fluid is seen. Minimal soft tissue stranding in region of vaginal cuff consistent with recent surgery. No focal fluid collection with contrast enhancing rim suggestive of pelvic abscess is seen. There is appearance of unremarkable ovaries. The bladder is normal. Soft tissue stranding in subcutaneous fat anterior pelvic wall consistent with recent surgery. Mild lumbar spondylosis. Degenerative changes at sacroiliac joints. Likely small bone island in right pubic body. IMPRESSION: Consistent with mild postoperative changes noted above. No evidence of intrapelvic abscess. Nonspecific bilateral minimal hydronephrosis. Please see above. RPTAT: HJES .Sumeet Del Rio MD, MD Date Time Electronically viewed and signed by .Sumeet Del Rio MD, MD on 11/30/2016 20:42 MDM: Patient is presenting with lower abdominal pain after a total abdominal hysterectomy with associated fevers and chills. Here her vitals were notable for mild tachypnea, mild tachycardia, and a low-grade fever. 30 cc/kg of IV fluids and broad-spectrum antibiotics were given with improvement of vital signs. She was given morphine for the pain. Broad-spectrum antibiotics were given. CT abdomen and pelvis was done and did not show any evidence of intra- abdominal abscess or postop infection. I believe the patient is stable for discharge with continued outpatient follow-up at this time. I will change her antibiotics from Cipro to Keflex given some mild subcutaneous stranding seen on the CT in the area of the incision. Urine culture and blood cultures are pending. Patient does not need admission at this time. She will follow-up with her surgeon tomorrow as scheduled. Return precautions were given. Severe Sepsis Assessment: Infectious Source: Intra-abdominal/intrapelvic Severe Sepsis Managment: Blood Cultures X 2 before broad spectrum antibiotics initiated within 3 hours of recognition. 30 ml/kg NS bolus Completed Initial Lactate: normal Repeat Lactate not indicated as initial < 2.0 Departure Diagnosis: Primary Impression: Lower abdominal pain Additional Impression: Status post hysterectomy Condition: Stable EKMIRLANDE HERMAN MD November 30, 2016 20:30
--- NOTE | 2016-11-30 20:42 | RADRPT ---
PROCEDURE: CT Abdomen and Pelvis with contrast. CLINICAL INDICATION: Possible postop infection; hysterectomy 11/02/2016 TECHNIQUE: CT scan of the abdomen and pelvis with contrast was performed on a multi-detector high- resolution CT scanner. The patient was scanned following the intravenous administration of 100 cc o f Omnipaque 300. Coronal and sagittal reformatted images were obtained from the axial source images . Images were reviewed on a high-resolution PACS workstation. The total exam CTDI equals 11.93 mGy a nd the total exam DLP equals 664.2 mGy-cm. One or more the following dose reduction techniques were utilized: Automated exposure control, adjus tment of the mA/ or kV according to patient's size, or use of iterative reconstruction technique. COMPARISON: None. FINDINGS: CT abdomen: Mild dependent atelectasis at lung bases posteriorly. The heart size is normal, without pericardial thickening or effusion. There is approximate 3 mm oval low density structure too small to characte rize in the upper dome of the liver posteriorly. No imaging follow-up of this is recommended. The spleen is normal in size and homogeneous in density. The stomach is partially collapsed, but is jimmy ssly unremarkable. The pancreas as visualized is normal. The gallbladder and biliary tree are unre markable and there is no evidence for biliary dilatation. The adrenal glands are symmetric and norm al. Nonspecific bilateral minimal hydronephrosis. No renal or ureteral stone is seen on this contr ast-enhanced study. The aorta is of normal caliber. There is no retroperitoneal lymphadenopathy. The josh hepatis re gion is clear. The bowel and mesentery, as visualized, are equally unremarkable. Very small umbilic al hernia containing fat only. CT pelvis: The small bowel loops situated within the pelvis are unremarkable. Hysterectomy. The pelvic sidewa lls and inguinal regions are clear. The sigmoid colon and rectum are unremarkable. No mass, lympha denopathy, or free fluid is seen. Minimal soft tissue stranding in region of vaginal cuff consisten t with recent surgery. No focal fluid collection with contrast enhancing rim suggestive of pelvic a bscess is seen. There is appearance of unremarkable ovaries. The bladder is normal. Soft tissue stra nding in subcutaneous fat anterior pelvic wall consistent with recent surgery. Mild lumbar spondylosis. Degenerative changes at sacroiliac joints. Likely small bone island in ri ght pubic body. IMPRESSION: Consistent with mild postoperative changes noted above. No evidence of intrapelvic abscess. Nonspec ific bilateral minimal hydronephrosis. Please see above. RPTAT: HJES .Sumeet Del Rio MD, Date Time Electronically viewed and signed by .Sumeet Del Rio MD, MD on 11/30/2016 20:42 .S/
[2016-11-30] MEDS ORDERED: CEPH-443 PO (20:49)
[2016-11-30 21:00] VITALS: BP 134/91; PULSE 86; RESP 18
== END 2016-11-30 21:30 | disposition home or self-care (01) ==
LOC: E/R 14:24
DX: R10.30 Lower abdominal pain, unspecified (principal); I10 Essential (primary) hypertension; Z90.710 Acquired absence of both cervix and uterus
CPT/HCPCS: 36415; 74177; 80053; 81001; 83605; 85025; 85610; 85730; 87040; 87086; 96374; 96375; J2270; J2543; J3370; J7030; Q9967; Z7502; Z7610; 81003

== ENCOUNTER 2017-07-28 01:04 | Emergency (ER) | payer OTHER ==
[~2017-07-28] VITALS: Ht 165.1 cm; Wt 74.0 kg
[~2017-07-28 01:04] MED LIST changes: +CEPH-443 PO
[2017-07-28 01:26] VITALS: Ht 165.1 cm; Wt 74.0 kg
[2017-07-28] MEDS ORDERED: SOD CHLORIDE 0.9% 1,000 ML IV STA (04:31)
[2017-07-28] MEDS ORDERED: KETOROLAC 30 MG INJ IV STA (04:31)
--- NOTE | 2017-07-28 04:51 | ERD ---
ER Documentation Chief Complaint Chief Complaint CP x1 day. worse when cough. cough intermittent per pt. Denies SOB HPI This is a 47-year-old female. She presents to the emergency room with less than 24 hours of symptoms that include central and slightly left-sided chest pain that is only caused by coughing. She states it is reproducible to touch along the left sternal costal margin. The pain is moderate, 5 out of 10. She describes dry nonproductive cough for at least 24 hours. No fevers or chills, no pleuritic pain, no recent travel, immobilization, surgery or calf pain. ROS All systems reviewed and are negative except as per history of present illness. Medications Home Meds Active Scripts Ibuprofen* (Motrin*) 800 Mg Tab, 800 MG PO Q6H Y for PAIN AND OR ELEVATED TEMP, #30 TAB Prov:LORRAINE LYNN MD 07/28/17 Reported Medications Nitroglycerin* (Nitroglycerin* SL) 0.4 Mg Tab.subl, 0.4 MG SL Q5MIN Y for CHEST PAIN, BOTTLE 07/28/17 Diltiazem Hcl* (Cardizem SR*) 90 Mg Capsr, 90 MG PO TID, #60 CAP 07/28/17 Metoprolol Tartrate* (Lopressor*) 100 Mg Tablet, 100 MG PO BID, #60 TAB 09/22/15 Enalapril (Enalapril) 20 Mg Tablet, 20 MG PO DAILY 09/29/11 Discontinued Reported Medications Diltiazem Hcl* (Diltiazem XT) 120 Mg Capsule.sa, 120 MG PO DAILY, #30 CAP 11/02/16 Discontinued Scripts Cephalexin* (Keflex*) 500 Mg Capsule, 500 MG PO TID for 7 Days, CAP Prov:MIRLANDE YANES MD 11/30/16 Allergies Allergies: Coded Allergies: No Known Allergies (Verified Allergy, Mild, 07/28/17) PMhx/Soc History of Surgery: Yes (C SECTION, APPENDECTOMY, COLONOSCOPY, total abdominal hysterectomy) Anesthesia Reaction: No Hx Neurological Disorder: No Hx Respiratory Disorders: No Hx Cardiac Disorders: No Hx Psychiatric Problems: No Hx Miscellaneous Medical Probl: Yes (Hypertension, endometriosis) Hx Alcohol Use: No Hx Substance Use: No Hx Tobacco Use: No FmHx Family History: No coronary disease, No diabetes Physical Exam Vitals Vital Signs Date Time Temp Pulse Resp B/P Pulse Ox O2 Delivery O2 Flow Rate FiO2 07/28/17 05:00 99.7 95 15 137/90 100 Room Air 07/28/17 01:26 98.1 129 18 137/88 98 Physical Exam General: Well developed, well nourished, no acute distress Head: Normocephalic, atraumatic. Eyes: Pupils equally reactive, EOM intact ENT: Moist mucous membranes Neck: Supple, no lymphadenopathy Respiratory: Lungs clear bilaterally, no distress, very reproducible soft tissue tenderness along the left sternal costal margin Cardiovascular: RRR, no murmurs, rubs, or gallops Abdominal: Soft, non-tender, non-distended, no peritoneal signs : Deferred MSK: No edema, no unilateral swelling, 5/5 strength Neurologic: Alert and oriented, moving all extremities, normal speech, no focal weakness, no cerebellar signs Skin: No rash Psych: Normal mood Result Diagram: 07/28/17 0450 07/28/17 0450 Results 24 hrs Laboratory Tests Test 07/28/17 04:50 07/28/17 04:55 White Blood Count 4.610^3/ul Red Blood Count 4.8810^6/ul Hemoglobin 13.9g/dl Hematocrit 40.8% Mean Corpuscular Volume 83.6fl Mean Corpuscular Hemoglobin 28.5pg Mean Corpuscular Hemoglobin Concent 34.1g/dl Red Cell Distribution Width 14.0% Platelet Count 98733^3/UL Mean Platelet Volume 12.0fl Neutrophils % 61.3% Lymphocytes % 21.9% Monocytes % 14.9% Eosinophils % 1.3% Basophils % 0.4% Nucleated Red Blood Cells % 0.0/100WBC Neutrophils # 2.810^3/ul Lymphocytes # 1.010^3/ul Monocytes # 0.710^3/ul Eosinophils # 0.110^3/ul Basophils # 0.010^3/ul Nucleated Red Blood Cells # 0.010^3/ul Sodium Level 138mmol/L Potassium Level 3.6mmol/L Chloride Level 105mmol/L Carbon Dioxide Level 23mmol/L Anion Gap 14 Blood Urea Nitrogen 13mg/dl Creatinine 0.75mg/dl Glucose Level 110mg/dl Calcium Level 9.1mg/dl Troponin I < 0.012ng/ml Bedside Urine pH (LAB) 7.0 Bedside Urine Protein (LAB) 1+ Bedside Urine Glucose (UA) Negative Bedside Urine Ketones (LAB) 1+ Bedside Urine Blood 1+ Bedside Urine Nitrite (LAB) Negative Bedside Urine Leukocyte Esterase (L Negative Current Medications Medications (Trade) Dose Ordered Sig/Roel Route PRN Reason Start Time Stop Time Status Last Admin Dose Admin Sodium Chloride (NS) 1,000 ml @ 1,000 mls/hr Q1H STAT IV 07/28/17 04:31 07/28/17 05:30 DC 07/28/17 04:58 Ketorolac Tromethamine (Toradol) 30 mg ONCE STAT IV 07/28/17 04:31 07/28/17 04:32 DC 07/28/17 04:58 Procedures/MDM EKG, MONITORS, & DIAGNOSTIC IMAGING: EKG: I reviewed and interpreted a 12-lead EKG. Rhythm: Sinus tachycardia Ectopy: None Intervals: No abnormalities ST segments: No elevations or depressions T waves: No contiguous inversions Chest x-ray: I reviewed and interpreted a 1 view of the chest Mediastinum: No enlargement Cardiac silhouette: No cardiomegaly Airspace: Clear lung cruz bilaterally without evidence of pneumothorax Bones: No evidence of fracture LAB INTERPRETATION: Negative troponin, the patient's WBC and platelets are slightly below normal, likely secondary to acute phase reactant and viral process. Low concern for malignancy. Outpatient follow-up for repeat testing would be appropriate MEDICAL DECISION MAKING: The patient's chest pain is very reproducible and very consistent with likely musculoskeletal etiology, costochondritis versus chest wall pain or intercostal strain secondary to coughing and likely viral process. Low pretest probability for pulmonary embolism, dissection, acute coronary syndrome. The patient has no exertional symptoms and her EKG is nonischemic. The patient does have slight tachycardia do not believe this is consistent with pulmonary embolism and I believe the risks of d-dimer and false positive testing outweigh the benefits. The patient likely has a viral process. Additionally, the patient's heart score is less than 3 with Mace less than 1.7%. I believe an EKG and single troponin would be reasonable given very low pretest probability for cardiac etiology. ER COURSE: IV fluids and Toradol provided. Heart rate improved. Symptoms improved. Again, as documented above this is not consistent with cardiac or cardiopulmonary process. Symptoms are very reproducible. Likely viral process with costochondritis. Outpatient management would be appropriate with a trial of NSAID. I kept the patient and/or family informed of laboratory and diagnostic imaging results throughout the emergency room course. DISPOSITION PLAN: We discussed follow up with the patient's primary care doctor within 24 to 48 hours as needed. We also discussed return to the emergency room for worsening symptoms or worsening condition. Outpatient referral: [None required] Discharge Medications: Motrin Departure Diagnosis: Primary Impression: Chest wall pain Additional Impression: Viral syndrome Condition: Stable LORRAINE LYNN MD Jul 28, 2017 04:51
[2017-07-28 04:56] LABS: URINE BLOOD (Dip) POC 1+ (NEGATIVE)
[2017-07-28 05:20] LABS: BASOPHILS % 0.4 % (0.0-2.0); EOSINOPHILS # 0.1 10^3/ul (0.0-0.5); EOSINOPHILS % 1.3 % (0.0-7.0); HEMATOCRIT 40.8 % (37.0-47.0); HEMOGLOBIN 13.9 g/dl (12.0-16.0); LYMPHOCYTES % 21.9 % (15.0-51.0); MEAN CORPUSCULAR HEMOGLOBIN 28.5 pg (29.0-33.0); MEAN CORPUSCULAR HGB CONC 34.1 g/dl (32.0-37.0); MEAN CORPUSCULAR VOLUME 83.6 fl (82.0-101.0); MONOCYTE # 0.7 10^3/ul (0.3-0.9); MONOCYTES % 14.9 % (0.0-11.0); NEUTROPHIL # 2.8 10^3/ul (1.6-7.5); NEUTROPHILS % 61.3 % (39.0-77.0); PLATELET COUNT 114 10^3/UL (140-415); RED BLOOD COUNT 4.88 10^6/ul (4.20-5.40); WHITE BLOOD COUNT 4.6 10^3/ul (4.8-10.8)
[2017-07-28 05:30] LABS: ANION GAP 14 (8-16); BLOOD UREA NITROGEN 13 mg/dl (7-20); CALCIUM 9.1 mg/dl (8.4-10.2); CARBON DIOXIDE 23 mmol/L (21-31); CHLORIDE 105 mmol/L (97-110); CREATININE 0.75 mg/dl (0.44-1.00); GLUCOSE 110 mg/dl (70-220); POTASSIUM 3.6 mmol/L (3.5-5.1); SODIUM 138 mmol/L (135-144)
[2017-07-28] MEDS ORDERED: CARSR90 PO (05:38)
[2017-07-28] MEDS ORDERED: NITR0.4T32 SL (05:38)
[2017-07-28] MEDS ORDERED: IBUP800T25 PO (05:43)
[2017-07-28 05:55] LABS: TROPONIN-I < 0.012 ng/ml (0.00-0.12)
--- NOTE | 2017-07-28 05:57 | RADRPT ---
PROCEDURE: CHEST - 1 VIEW CLINICAL INDICATION: 47-year-old female with chest pain. TECHNIQUE: A single frontal AP semi-erect portable view of the chest was performed. The images we re reviewed on a PACS workstation. COMPARISON: CR CHEST 09/22/2015; CR CHEST 04/24/2014; CR CHEST 08/03/2013 FINDINGS: The cardiomediastinal silhouette has a normal appearance. There is no evidence for an infiltrate. There is no evidence for congestive heart failure. There is no evidence for pneumothorax. The osseou s structures are intact. IMPRESSION: No evidence for active cardiopulmonary disease. .Eliud Cedeno MD, MD Date Time Electronically viewed and signed by .Eliud Cedeno MD, on 07/28/2017 05:56 .[place]oy/
[2017-07-28 05:58] VITALS: BP 127/84; PULSE 82; RESP 18; TEMP 98.9
== END 2017-07-28 06:07 | disposition home or self-care (01) ==
LOC: E/R 01:04
DX: R07.89 Other chest pain (principal); R40.2252 Coma scale, best verbal response, oriented, at arrival to emergency department; B34.9 Viral infection, unspecified; I10 Essential (primary) hypertension; R40.2142 Coma scale, eyes open, spontaneous, at arrival to emergency department; R40.2362 Coma scale, best motor response, obeys commands, at arrival to emergency department
CPT/HCPCS: 36415; 71010; 80048; 81003; 84484; 85025; 93005; 96374; J1885; J7030; Z7502

== ENCOUNTER 2017-12-07 22:42 | Inpatient (IN) | END 2017-12-12 16:15 | disposition home or self-care (01) | DRG 103 ==

== ENCOUNTER 2018-05-24 15:34 | Emergency (ER) | END 2018-05-24 21:15 | disposition home or self-care (01) ==

== ENCOUNTER 2018-06-05 06:33 | Day surgery (SDC) | END 2018-06-05 10:55 | disposition home or self-care (01) ==

== ENCOUNTER 2018-08-01 19:16 | Emergency (ER) | payer OTHER ==
[~2018-08-01] VITALS: Ht 160 cm; Wt 80.9 kg
[~2018-08-01 19:16] MED LIST changes: +ASPI-817 PO; +CARSR90 PO; -CEPH-443 PO; -DILT120C79 PO; +ENAL20TA PO; -ENAL20TA77 PO; +HYDR25TA6 PO
[2018-08-01 19:24] VITALS: Ht 160 cm; Wt 80.9 kg
[2018-08-01] MEDS ORDERED: ONDANSETRON 4 MG INJ IV STA (20:07)
[2018-08-01] MEDS ORDERED: ACETAMINOPHEN 325 MG TAB PO STA (20:07)
[2018-08-01] MEDS ORDERED: CEFEPIME 2GM/50 ML (PMX) 50 ML IVPB STA (20:07)
[2018-08-01] MEDS ORDERED: SODIUM CHLORIDE 0.9% 1L BAG IV* STA (20:07)
[2018-08-01] MEDS ORDERED: HYDROmorphONE 1 MG/ML SYG IV STA (20:07)
[2018-08-01] MEDS ORDERED: VANCOMYCIN 1 GM (PMX) 250 ML IVPB ONE (20:30)
[2018-08-01] MEDS ORDERED: IOHEXOL 300MG/ML 150 ML BTL ONE (21:07)
[2018-08-01] MEDS ORDERED: SOD CHLORIDE 0.9% 100 ML ONE (21:07)
--- NOTE | 2018-08-01 21:46 | ERD ---
ER Documentation Chief Complaint Chief Complaint fever/vomiting/flank pain/urinary symptoms today only HPI This a 40-year-old female complains onset this morning with chills fever, nausea vomiting, right flank pain. She says she has no abdominal pain. Denies any dysuria hematuria denies cough. The pain is dull and constant in the right back flank area. No body aches or arthralgias or sore throat ROS All systems reviewed and are negative except as per history of present illness. Medications Home Meds Reported Medications Gabapentin* (Gabapentin*) 300 Mg Capsule, 300 MG PO BID, #60 CAP 08/01/18 Hydrochlorothiazide* (Hydrochlorothiazide*) 25 Mg Tab, 25 MG PO DAILY, #30 TAB 06/05/18 Diltiazem Hcl* (Cardizem SR*) 90 Mg Capsr, 90 MG PO TID, #60 CAP 06/05/18 Metoprolol Tartrate* (Lopressor*) 100 Mg Tablet, 100 MG PO TID, #60 TAB 06/05/18 Enalapril Maleate* (Enalapril Maleate*) 20 Mg Tablet, 20 MG PO BID, TAB 06/05/18 Aspirin* (Aspirin* EC) 81 Mg Tablet.dr, 81 MG PO DAILY, TAB 12/07/17 Allergies Allergies: Coded Allergies: No Known Allergies (Verified Allergy, Mild, 06/05/18) PMhx/Soc History of Surgery: Yes (c-sec x1, hysterectomy, appendectomy) Anesthesia Reaction: No Hx Neurological Disorder: No Hx Respiratory Disorders: No Hx Cardiac Disorders: No Hx Psychiatric Problems: No Hx Miscellaneous Medical Probl: No Hx Alcohol Use: No Hx Substance Use: No Hx Tobacco Use: No Smoking Status: Never smoker FmHx Family History: No coronary disease Physical Exam Vitals Vital Signs Date Temp Pulse Resp B/P (MAP) Pulse Ox O2 O2 Flow FiO2 Time Delivery Rate 08/01/18 99.9 117 16 110/68 97 Nasal 2.0 22:20 (82) Cannula 08/01/18 Nasal 3 20:43 Cannula 08/01/18 99.0 121 18 137/76 95 Nasal 2.0 20:20 (96) Cannula 08/01/18 102.6 153 20 181/108 98 19:24 (132) Physical Exam Const: Well-developed, well-nourished Head: Atraumatic, normocephalic Eyes: Normal Conjunctiva, PERRLA, EOMI, normal sclera, no nystagmus ENT: Normal External Ears, Nose and Mouth, moist mucus membranes. Neck: Full range of motion. No meningismus, no lymphadenopathy. Resp: Clear to auscultation bilaterally, no wheezing, rhonchi, rales Cardio: Tachycardia no murmurs, S1 S2 present] Abd: Soft, non tender x 4, non distended. Normal bowel sounds, no guarding or rebound, no pulsitile abdominal masses or bruits Skin: No petechiae or rashes, no ecchymosis , no maculopapular rash Back: Right flank tenderness moderate Ext: No cyanosis, or edema, FROM x 4, normal inspection, neurovascularly intact x 4 Neur: Awake and alert, STR 5/5 x 4, sensation intact x 4, no focal findings, cerebellum intact Psych: Normal Mood and Affect Result Diagram: 08/01/18201608/01/18 2018 Results 24 hrs Laboratory Tests Test 08/01/18 20:06 08/01/18 20:14 08/01/18 20:17 08/01/18 20:18 POC Venous Lactate 1.8 mmol/L POC Beta HCG, NEGATIVE Qualitative White Blood Count 9.9 10^3/ul Red Blood Count 4.96 10^6/ul Hemoglobin 14.8 g/dl Hematocrit 43.0 % Mean Corpuscular 86.7 fl Volume Mean Corpuscular 29.8 pg Hemoglobin Mean Corpuscular 34.4 g/dl Hemoglobin Concent Red Cell 12.7 % Distribution Width Platelet Count 119 10^3/UL Mean Platelet Volume 12.2 fl Immature 0.300 % Granulocytes % Neutrophils % 85.8 % Lymphocytes % 7.3 % Monocytes % 6.0 % Eosinophils % 0.3 % Basophils % 0.3 % Nucleated Red Blood 0.0 /100WBC Cells % Immature 0.030 10^3/ul Granulocytes # Neutrophils # 8.5 10^3/ul Lymphocytes # 0.7 10^3/ul Monocytes # 0.6 10^3/ul Eosinophils # 0.0 10^3/ul Basophils # 0.0 10^3/ul Nucleated Red Blood 0.0 10^3/ul Cells # Urine Color YELLOW Urine Clarity CLEAR Urine pH 8.0 Urine Specific 1.014 [place] Urine Ketones NEGATIVE mg/dL Urine Nitrite NEGATIVE mg/dL Urine Bilirubin NEGATIVE mg/dL Urine Urobilinogen NEGATIVE mg/dL Urine Leukocyte NEGATIVE Monico/ul Esterase Urine Microscopic 4 /HPF RBC Urine Microscopic 0 /HPF WBC Urine Hemoglobin 1+ mg/dL Urine Glucose NEGATIVE mg/dL Urine Total Protein NEGATIVE mg/dl Sodium Level 139 mmol/L Potassium Level 3.8 mmol/L Chloride Level 104 mmol/L Carbon Dioxide Level 24 mmol/L Anion Gap 11 Blood Urea Nitrogen 13 mg/dl Creatinine 0.88 mg/dl Est Glomerular > 60 mL/min Filtrat Rate mL/min Glucose Level 130 mg/dl Calcium Level 10.0 mg/dl Total Bilirubin 0.4 mg/dl Direct Bilirubin 0.00 mg/dl Indirect Bilirubin 0.4 mg/dl Aspartate Amino 30 IU/L Transf (AST/SGOT) Alanine 39 IU/L Aminotransferase (AL T/SGPT) Alkaline Phosphatase 103 IU/L Total Protein 8.2 g/dl Albumin 4.6 g/dl Globulin 3.60 g/dl Albumin/Globulin 1.27 Ratio Current Medications Medications Dose Sig/Roel Start Time Status Last (Trade) Ordered Route PRN Stop Time Admin Dose Reason Admin Sodium 2,430 ml BOLUS OVER 2 08/01/18 DC 08/01/18 Chloride HOURS STAT 20:07 08/01/18 20:23 (NS) IV* 20:10 650 mg ONCE STAT 08/01/18 DC 08/01/18 Acetaminophen PO 20:07 08/01/18 20:23 (Tylenol 20:10 Tab) 1 mg ONCE STAT 08/01/18 DC 08/01/18 Hydromorphone IV 20:07 08/01/18 20:23 HCl 20:10 (Dilaudid) Ondansetron 4 mg ONCE STAT 08/01/18 DC 08/01/18 HCl (Zofran IV 20:07 08/01/18 20:23 Inj) 20:10 Cefepime HCl 50 ml @ ONCE STAT 08/01/18 DC 08/01/18 100 mls/hr IVPB 20:07 08/01/18 20:29 20:36 Vancomycin 250 ml @ ONCE ONCE 08/01/18 DC 08/01/18 HCl 125 mls/hr IVPB 20:30 08/01/18 20:49 22:29 IV Flush 10 ml STK-MED 08/01/18 DC 08/01/18 (NS 10 ml) ONCE .ROUTE 21:07 08/01/18 21:23 21:08 Sodium 100 ml @ ud STK-MED 08/01/18 DC 08/01/18 Chloride ONCE .ROUTE 21:07 08/01/18 21:23 21:08 Iohexol 150 ml STK-MED 08/01/18 DC 08/01/18 (Omnipaque ONCE .ROUTE 21:07 08/01/18 21:24 300mg/ ml) 21:08 Ketorolac 30 mg ONCE STAT 08/01/18 DC Tromethamine IV 23:01 08/01/18 (Toradol) 23:02 Procedures/MDM PROCEDURE: XR Chest. CLINICAL INDICATION: Possible sepsis. TECHNIQUE: AP view of the chest was obtained. COMPARISON: None available FINDINGS: The cardiomediastinal silhouette is within normal limits. The lungs are partially expanded otherwise clear. No signs of pleural fluid or pneumothorax are seen. The osseous structures and soft tissues are unremarkable. IMPRESSION: 1. No evidence for active cardiopulmonary disease. 2. Partial lung expansion without focal consolidation. RPTAT: HGAS .Rodolfo Rolwey MD, MD Date Time Electronically viewed and signed by .Rodolfo Rowley MD, MD on 08/01/2018 20:42 .S/ CC: HELEN FRANCISCO DO [id number] Ordering MD: HELEN FRANCISCO DO Location: E/R Room/Bed: PROCEDURE: CT abdomen and pelvis with contrast. CLINICAL INDICATION: Abdominal and right flank pain with fever. TECHNIQUE: CT scan of the abdomen and pelvis with contrast was performed. Coronal and sagittal images were also reformatted. 90 cc Omnipaque -300 intravenous contrast was administered without complication. DICOM images are available. One or more of the following dose reduction techniques were used: Automated exposure control, adjustment of the mA and/or kV according to patient size, use of iterative reconstruction technique. Total exam CTDIvol = 13.75 mGy and DLP = 776.03 mGy-cm. COMPARISON: 11/30/2016 FINDINGS: Visualized lower thorax: Scattered subsegmental atelectasis within the right greater than left lower lobes is present without evidence of pneumonia. There is no evidence for pleural effusion. Liver, gallbladder, pancreas and spleen: Hepatomegaly of 20 cm is present with diffuse low attenuation consistent with hepatic steatosis with normal liver contour. There is no evidence for liver mass or ductal dilatation. The gallbladder is unremarkable. No common bile duct dilatation is evident. The pancreas is normal. The spleen is normal, not enlarged. Adrenal glands and genitourinary system: The adrenal glands are normal bilaterally. The kidneys are normal in size, contour and attenuation with no evidence for masses, calculi or hydronephrosis. Symmetric enhancement of the kidneys is present without evidence of pyelonephritis. There is no evidence of pararenal abscess The ureters are unremarkable. The urinary bladder shows no abnormality. Hysterectomy changes are noted.. Incidental pelvic phlebolith on the right is again noted. Gastrointestinal system: The stomach, small bowel and large intestine are normal in caliber. There is no evidence of obstruction, ileus or inflammation. There is no evidence of appendicitis. Moderate amount of fecal debris throughout the colon may correlate clinically with constipation. There is no evidence of colitis or diverticulitis. Peritoneum, retroperitoneum, vessels and lymph nodes: The abdominal aorta is normal in caliber. There is no evidence for atherosclerotic calcification. Inferior vena cava is normal in caliber. There is no evidence for adenopathy. The peritoneal cavity is normal with no evidence for ascites. There is no evidence of pneumoperitoneum. There is no evidence of intraperitoneal abscess. A small fat-containing umbilical hernia is noted Osseous structures and musculoskeletal system: There is no evidence for acute osseous abnormality or muscular pathology. Degenerative disc disease with osteophyte and disc complex is present at L4-5, findings unchanged. Postoperative scarring of the lower abdominal wall is likely related to extract. There is no acute muscular or subcutaneous tissue abnormality. RPTAT:HJJR IMPRESSION: 1. There is no evidence of pyelonephritis, urinary tract calculus or finding to help explain the patient's provided history of right flank pain and fever. 2. Degenerative disc disease and enthesopathy at L4-5 is stable compared to the 11/30/2016. 3. Hepatomegaly with hepatic steatosis. 4. Scattered subsegmental atelectasis of the lower lobes without evidence of pneumonia. 5. Postoperative changes of the lower abdominal wall and findings of hysterectomy. 6. Amount of fecal debris within the colon may correlate clinically with constipation. 7. Tiny fat-containing umbilical hernia. Mark Limon Physician Date Time Electronically viewed and signed by Mark Limon Physician on 08/01/2018 22:14 JR/ CC: HELEN FRANCISCO DO [id number] Patient is complaining of diffuse body aches and her fever starting to climb we will give some Toradol and send off a flu swab So far workup is unremarkable no signs of sepsis no signs of UTI or pyelonephritis no pneumonia. This is likely going to be a viral etiology of her illness will need symptomatic treatment. Sonogram of the gallbladder is pending however no evidence of gallbladder pathology was seen on the CT scan Departure Diagnosis: Primary Impression: Fever Fever type: unspecified Qualified Codes: R50.9 - Fever, unspecified Condition: Stable HELEN FRANCISCO DO Aug 01, 2018 21:46
[2018-08-01] MEDS ORDERED: GABA300C16 PO (22:36)
[2018-08-01] MEDS ORDERED: KETOROLAC 30 MG INJ IV STA (23:01)
[2018-08-01] MEDS ORDERED: IBUP800T48 PO (23:20)
[2018-08-01] MEDS ORDERED: HYDR-4011 PO (23:20)
[2018-08-01] MEDS ORDERED: DICY10CA40 PO (23:31)
[2018-08-01] MEDS ORDERED: SOD CHLORIDE 0.9% 1,000 ML IV STA (23:37)
[2018-08-01] MEDS ORDERED: OSLT75C PO (23:38)
[2018-08-02 00:45] VITALS: BP 108/68; PULSE 98; RESP 16
== END 2018-08-02 00:45 | disposition home or self-care (01) ==
LOC: E/R 19:16
DX: R50.9 Fever, unspecified (principal); Z79.82 Long term (current) use of aspirin
CPT/HCPCS: 36415; 71045; 74177; 76705; 80053; 81001; 81025; 83605; 85025; 87040; 87086; 87400; 96365; 96366; 96367; 96375; J0692; J1170; J1885; J2405; J3370; J7030; Q9967; Z7502; Z7610

== ENCOUNTER 2018-11-28 16:20 | Inpatient (IN) | payer OTHER ==
[~2018-11-28] VITALS: Ht 167.6 cm; Wt 85.6 kg
[~2018-11-28 16:20] MED LIST changes: +DICY10CA40 PO; +GABA300C16 PO; +HYDR-4011 PO; +IBUP800T48 PO; +OSEL75CA23 PO
--- NOTE | 2018-11-28 16:49 | QN ---
Documentation Comment Code stroke called from triage. However upon my evaluation the patient's symptoms started yesterday at 3 PM which is more than 24 hours from onset of symptoms. The patient is not a candidate for TPA or mechanical retrieval given the last known well time and therefore code stroke will be canceled. CATHI JAMES MD Nov 28, 2018 16:49
[2018-11-28] MEDS ORDERED: IOHEXOL 350MG/ML 50 ML BTL ONE (20:19)
[2018-11-28] MEDS ORDERED: IOHEXOL 100 ML ONE (20:19)
[2018-11-28] MEDS ORDERED: SOD CHLORIDE 0.9% 100 ML ONE (20:19)
[2018-11-28] MEDS ORDERED: ONDANSETRON 4 MG INJ IV STA (20:58)
[2018-11-28] MEDS ORDERED: morphine 4 MG/ML VIAL IV STA (20:58)
--- NOTE | 2018-11-28 21:29 | ERD ---
ER Documentation Chief Complaint Chief Complaint right sided weakness x 3pm 11/27/18 unable to ambulate HPI Patient is a 48-year-old female with hypertension and TIA who presents with weakness. She said that her symptoms started yesterday at 3 PM. She said that her right thigh started with a "pinch". She said that she developed right arm and right leg weakness and now she cannot walk. She tried ibuprofen. She reports headache and chest pain. Upon review of old medical records the patient has multiple visits to the ER for various complaints. ROS All systems reviewed and are negative except as per history of present illness. Medications Home Meds Active Scripts Ibuprofen* (Motrin*) 800 Mg Tab, 800 MG PO Q6H PRN for PAIN AND OR ELEVATED TEMP, #30 TAB Prov:HELEN FRANCISCO DO 08/01/18 Reported Medications Gabapentin* (Gabapentin*) 300 Mg Capsule, 300 MG PO prn PRN for PAIN, #60 CAP 08/01/18 Hydrochlorothiazide* (Hydrochlorothiazide*) 25 Mg Tab, 25 MG PO DAILY, #30 TAB 06/05/18 Diltiazem Hcl* (Cardizem SR*) 90 Mg Capsr, 90 MG PO TID, #60 CAP 06/05/18 Metoprolol Tartrate* (Lopressor*) 100 Mg Tablet, 100 MG PO TID, #60 TAB 06/05/18 Enalapril Maleate* (Enalapril Maleate*) 20 Mg Tablet, 20 MG PO BID, TAB 06/05/18 Aspirin* (Aspirin* EC) 81 Mg Tablet.dr, 81 MG PO DAILY, TAB 12/07/17 Discontinued Scripts Oseltamivir Phosphate* (Tamiflu*) 75 Mg Capsule, 75 MG PO BID for 5 Days, CAP Prov:HELEN FRANCISCO DO 08/01/18 Dicyclomine HCl (Dicyclomine HCl) 10 Mg Capsule, 20 MG PO TID PRN for ABDOMINAL CRAMPING, #20 CAP Prov:HELEN FRANCISCO DO 08/01/18 Hydrocodone/Acetaminophen ([place] 5-325 Tablet) 1 Each Tablet, 1 TAB PO Q6H PRN for PAIN, #7 TAB Prov:HELEN FRANCISCO DO 08/01/18 Allergies Allergies: Coded Allergies: No Known Allergies (Unverified Allergy, Mild, 11/28/18) PMhx/Soc History of Surgery: Yes (c-sec x1, TAHBSO , appendectomy) Anesthesia Reaction: No Hx Neurological Disorder: Yes ('mild' CVA w R sided weakness) Hx Respiratory Disorders: No Hx Cardiac Disorders: Yes (HTN) Hx Psychiatric Problems: No Hx Miscellaneous Medical Probl: No Hx Alcohol Use: No Hx Substance Use: No Hx Tobacco Use: No Smoking Status: Never smoker FmHx Family History: diabetes Physical Exam Vitals Vital Signs Date Temp Pulse Resp B/P (MAP) Pulse Ox O2 O2 Flow FiO2 Time Delivery Rate 11/28/18 166/106 16:55 (126) 11/28/18 98.6 88 17 209/109 100 16:44 (142) Physical Exam Const: No acute distress Head: Atraumatic Eyes: Normal Conjunctiva ENT: Normal External Ears, Nose and Mouth. Neck: Full range of motion. No meningismus. Resp: Clear to auscultation bilaterally Cardio: Regular rate and rhythm, no murmurs Abd: Soft, non tender, non distended. Normal bowel sounds Skin: No petechiae or rashes Back: No midline or flank tenderness Ext: No cyanosis, or edema Neur: Awake and alert, right arm and right leg weakness, travel agent strength decreased on the right compared to the left, unable to lift the right leg off the bed Psych: Anxious Result Diagram: 11/28/18194211/28/181942 Results 24 hrs Laboratory Tests Test 11/28/18 19:42 11/28/18 19:43 Prothrombin Time 12.6 Sec Prothrombin Time Ratio 1.0 INR International Normalized Ratio 0.93 Activated Partial Thromboplast Time 26.9 Sec Hemoglobin A1c 6.0 % White Blood Count 7.9 10^3/ul Red Blood Count 5.23 10^6/ul Hemoglobin 15.3 g/dl Hematocrit 45.9 % Mean Corpuscular Volume 87.8 fl Mean Corpuscular Hemoglobin 29.3 pg Mean Corpuscular Hemoglobin Concent 33.3 g/dl Red Cell Distribution Width 13.1 % Platelet Count 134 10^3/UL Mean Platelet Volume 12.1 fl Immature Granulocytes % 0.300 % Neutrophils % 49.7 % Lymphocytes % 37.4 % Monocytes % 8.0 % Eosinophils % 4.2 % Basophils % 0.4 % Nucleated Red Blood Cells % 0.0 /100WBC Immature Granulocytes # 0.020 10^3/ul Neutrophils # 3.9 10^3/ul Lymphocytes # 2.9 10^3/ul Monocytes # 0.6 10^3/ul Eosinophils # 0.3 10^3/ul Basophils # 0.0 10^3/ul Nucleated Red Blood Cells # 0.0 10^3/ul Urine Color YELLOW Urine Clarity SLIGHTLY CLOUDY Urine pH 5.0 Urine Specific [place] 1.016 Urine Ketones NEGATIVE mg/dL Urine Nitrite NEGATIVE mg/dL Urine Bilirubin NEGATIVE mg/dL Urine Urobilinogen NEGATIVE mg/dL Urine Leukocyte Esterase 1+ Monico/ul Urine Microscopic RBC 3 /HPF Urine Microscopic WBC 19 /HPF Urine Squamous Epithelial Cells FEW /HPF Urine Bacteria FEW /HPF Urine Hemoglobin 1+ mg/dL Urine Glucose NEGATIVE mg/dL Urine Total Protein NEGATIVE mg/dl Sodium Level 143 mmol/L Potassium Level 4.0 mmol/L Chloride Level 107 mmol/L Carbon Dioxide Level 27 mmol/L Anion Gap 9 Blood Urea Nitrogen 16 mg/dl Creatinine 0.90 mg/dl Est Glomerular Filtrat Rate mL/min > 60 mL/min Glucose Level 110 mg/dl Calcium Level 10.1 mg/dl Troponin I < 0.012 ng/ml Triglycerides Level 289 mg/dl Cholesterol Level 211 mg/dl LDL Cholesterol, Calculated 118 mg/dl HDL Cholesterol 35 mg/dl Cholesterol/HDL Ratio 6.0 RATIO Urine Opiates Screen NEGATIVE Urine Barbiturates NEGATIVE Urine Amphetamines Screen NEGATIVE Urine Benzodiazepines Screen NEGATIVE Urine Cocaine Screen NEGATIVE Urine Cannabinoids NEGATIVE Current Medications Medications Dose Sig/Roel Start Time Status Last (Trade) Ordered Route PRN Stop Time Admin Dose Reason Admin Morphine 4 mg ONCE STAT 11/28/18 DC 11/28/18 Sulfate IV 20:58 21:10 (morphine) 11/28/18 20:59 Ondansetron 4 mg ONCE STAT 11/28/18 DC 11/28/18 HCl (Zofran IV 20:58 21:10 Inj) 11/28/18 20:59 Aspirin 325 mg ONCE ONCE 11/28/18 (Aspirin) PO 21:30 11/28/18 21:31 Ondansetron 4 mg ER BRIDGE 11/28/18 HCl (Zofran PRN IV 21:30 11/29/18 Inj) NAUSEA/VOMITI 21:29 NG 650 mg ER BRIDGE 11/28/18 Acetaminophen PRN PO 21:30 11/29/18 (Tylenol .MILD PAIN 21:29 Tab) 1-3 OR TEMP Procedures/MDM CT brain read by radiology. CT chest read by radiology. Chest x-ray read by radiology. EKG #1 read by me: Rate/Rhythm: Regular rate and rhythm at a normal rate Intervals: Normal Impression: No evidence of ischemia or arrhythmia EKG #2 read by me: Rate/Rhythm: Regular rate and rhythm at a normal rate Intervals: Normal Impression: No evidence of ischemia or arrhythmia MEDICAL DECISION MAKING: Patient is a 48-year-old female presents with symptoms consistent with stroke. Her symptoms started at 3 PM yesterday which is more than 24 hours ago and therefore she is not a candidate for TPA and she is not a candidate for interventional procedure. The patient was given aspirin after a CT brain showed no sign of bleed. CT scan of the chest shows no signs of dissection. The patient will be admitted to the care of Dr. Young from the panel team to a telemetry bed. Departure Diagnosis: Primary Impression: Stroke CVA mechanism: unspecified Qualified Codes: I63.9 - Cerebral infarction, unspecified Additional Impressions: Acute weakness Chest pain Chest pain type: unspecified Qualified Codes: R07.9 - Chest pain, unspecified Condition: CATHI Erazo MD Nov 28, 2018 21:29
[2018-11-28] MEDS ORDERED: ACETAMINOPHEN 325 MG TAB PO PRN (21:30)
[2018-11-28] MEDS ORDERED: ONDANSETRON 4 MG INJ IV PRN ×2 (21:30→22:00)
[2018-11-28] MEDS ORDERED: ASPIRIN 325 MG TAB PO ONE (21:30)
--- NOTE | 2018-11-28 21:40 | HP ---
Date/Time of Note Date/Time of Note DATE: 11/28/18 TIME: 21:39 Assessment/Plan VTE Prophylaxis SCD applied (from Nsg): Yes Pharmacological prophylaxis: NA/contraindicated Pharm contraindication: low risk/ambulating Lines/Catheters IV Catheter Type (from Nrsg): Saline Lock Assessment/Plan Hospital Course This is a 48-year-old female being admitted to the telemetry floor for: #1 suspected subacute CVA: Patient has right-sided neurological deficits. Multiple sclerosis also in the differential. Neuro checks every 4 hours. Blood pressure control is no more need for permissive hypertension given that is been greater than 24 hours. Will resume patient's home medications for blood pressu re as she has prescribed, monitor blood pressures closely. MRI of the brain, MRA of the head and neck. Cervical CT spine CT cervical spine. Echocardiogram with bubble study. Will consult neurology . Aspirin, high-dose statin #2 obesity: Globin A1c 6.0, check lipid panel, TSH #3 hypertensive emergency: Patient presented with blood pressures in the 200s. Given her symptoms of stroke will treat her blood pressure. Monitor closely. She is on multiple medications including Lopressor 3 times daily, Cardizem 3 times daily, hydrochlorothiazide once daily, enalapril twice daily. Will need to monitor blood pressures closely to ensure no hypotension. #4 hypertension: Continue blood pressure meds, managed as per #3. #5 right calf tenderness: Ultrasound Doppler rule out DVT. #4 DVT GI prophylaxis: SCDs after Dopplers are confirmed negative for DVT, no GI prophylaxis indicated Further treatment strategy will be progressive clinical course Result Diagram: 11/28/18194211/28/181942 Results 24hrs Laboratory Tests Test 11/28/18 19:42 11/28/18 19:43 Prothrombin Time 12.6 Prothrombin Time Ratio 1.0 INR International Normalized Ratio 0.93 Activated Partial Thromboplast Time 26.9 Hemoglobin A1c 6.0 H White Blood Count 7.9 # Red Blood Count 5.23 Hemoglobin 15.3 Hematocrit 45.9 Mean Corpuscular Volume 87.8 Mean Corpuscular Hemoglobin 29.3 Mean Corpuscular Hemoglobin Concent 33.3 Red Cell Distribution Width 13.1 Platelet Count 134 L Mean Platelet Volume 12.1 H Immature Granulocytes % 0.300 Neutrophils % 49.7 Lymphocytes % 37.4 Monocytes % 8.0 Eosinophils % 4.2 Basophils % 0.4 Nucleated Red Blood Cells % 0.0 Immature Granulocytes # 0.020 Neutrophils # 3.9 Lymphocytes # 2.9 Monocytes # 0.6 Eosinophils # 0.3 Basophils # 0.0 Nucleated Red Blood Cells # 0.0 Urine Color YELLOW Urine Clarity SLIGHTLY CLOUDY A Urine pH 5.0 Urine Specific [place] 1.016 Urine Ketones NEGATIVE Urine Nitrite NEGATIVE Urine Bilirubin NEGATIVE Urine Urobilinogen NEGATIVE Urine Leukocyte Esterase 1+ H Urine Microscopic RBC 3 Urine Microscopic WBC 19 H Urine Squamous Epithelial Cells FEW Urine Bacteria FEW A Urine Hemoglobin 1+ H Urine Glucose NEGATIVE Urine Total Protein NEGATIVE Sodium Level 143 Potassium Level 4.0 Chloride Level 107 Carbon Dioxide Level 27 Anion Gap 9 Blood Urea Nitrogen 16 Creatinine 0.90 Est Glomerular Filtrat Rate mL/min > 60 Glucose Level 110 Calcium Level 10.1 Troponin I < 0.012 Triglycerides Level 289 H Cholesterol Level 211 H LDL Cholesterol, Calculated 118 HDL Cholesterol 35 Cholesterol/HDL Ratio 6.0 Urine Opiates Screen NEGATIVE Urine Barbiturates NEGATIVE Urine Amphetamines Screen NEGATIVE Urine Benzodiazepines Screen NEGATIVE Urine Cocaine Screen NEGATIVE Urine Cannabinoids NEGATIVE HPI/ROS Admit Date/Time Admit Date/Time Hx of Present Illness Chief complaint: Total right-sided numbness, weakness Patient is a 48-year-old female with hypertension and TIA who presents with weakness. She said that her symptoms started yesterday at 3 PM. She initially reports that she had right upper thigh pain. Then it progressed to numbness and weakness of the right lower extremity and then to the right arm and numbness of the right face. She has had difficulty walking due to her leg weakness. She also does report tightness of her right calf. She tried ibuprofen. She reports headache and chest pain. She also reports right-sided blurry vision she recently started on hydrochlorothiazide by her primary care doctor as her blood pressures have not been well controlled. Allergies: NKDA Medications: See SEP ROS Const: As per HPI Eyes : No pain discharge or redness or change in visual acuity ENT: No pain, sore throat, congestion, congestion, dysphagia or discharge Respiratory: No shortness of breath, cough, sputum, wheezing, or pleuritic pain Cardiovascular: No chest pain, palpitation, PND, or edema GI : no change in appetite, abdominal pain, nausea, vomiting, diarrhea, constipation, or change in the color his stool Genitourinary: No dysuria, hematuria, flank pain , discharge or CVA tenderness Musculoskeletal: As per HPI Skin: No rash, bruising or hives Neuro: As per HPI Endocrine: No polyuria, polydipsia, temperature intolerance Psych: No hallucination, depression, anxiety or suicidal ideation PMH/Family/Social Past Medical History Hypertension, history of TIA Medications Current Medications Ondansetron HCl (Zofran Inj) 4 mg ER BRIDGE PRN IV NAUSEA/VOMITING; Start 11/28/18 at 21:30; Stop 11/29/18 at 21:29 Acetaminophen (Tylenol Tab) 650 mg ER BRIDGE PRN PO .MILD PAIN 1-3 OR TEMP; Start 11/28/18 at 21:30; Stop 11/29/18 at 21:29 Aspirin (Aspirin) 300 mg ONCE ONCE GA Last administered on 11/28/18at 21:37; Admin Dose 300 MG; Start 11/28/18 at 22:00; Stop 11/28/18 at 22:01 Coded Allergies: No Known Allergies (Unverified Allergy, Mild, 11/28/18) Past Surgical History Diagnostic heart cath, Past Surgical Hx: other Family History Significant Family History: no pertinent family hx Social History Alcohol Use: none Smoking Status: Never smoker Drug Use: none Exam/Review of Systems Vital Signs Vitals Vital Signs Date Temp Pulse Resp B/P (MAP) Pulse Ox O2 O2 Flow FiO2 Time Delivery Rate 11/28/18 166/106 16:55 (126) 11/28/18 98.6 88 17 100 16:44 Exam Exam General: Currently lying in bed in no acute distress HEENT: Atraumatic, normocephalic. The pupils are equal, round and reactive. Extr aocular motor are intact subjective blurry vision on the right eye Neck: Supple with full range of motion. No rigidity or meningismus Chest: Nontender Lungs: Clear to auscultation bilaterally no crackles rales or wheezing Heart: Normal S1-S2, Regular rhythm and rate. No murmur, S3, or S4 Abdomen: Soft , nontender, nondistended , bowel sounds are present. No guarding no rebound tenderness , No masses or organomegaly. No costovertebral temporal angle mass Extremities: Right posterior calf tenderness to palpation Neurologic: Normal mental status, speech normal, cranial nerves II through XII are intact, diminished motor and sensory noted of the right upper and lower extremity. Strength 3 out of 5 in right upper and lower extremities. Decreased health care analyst strength on the right side. Additional Comments PROCEDURE: CT brain without contrast. CLINICAL INDICATION: Weakness, stroke. TECHNIQUE: CT scan of the brain was performed on a multi-detector high- resolution CT scanner. Contiguous axial images were obtained from the skull base to the vertex without intravenous contrast. Coronal and sagittal reformatted images were also obtained. Images were reviewed on the PACS workstation. DICOM images are available. One or more of the following dose reduction techniques were used: - Automated exposure control. - Adjustment of the mA and/or kV according to patient size. - Use of iterative reconstruction technique. Exam CTD/vol = 37.91 mGy. Total exam DLP = 634.23 mGy-cm. COMPARISON: 12/07/2017. FINDINGS: The ventricles and cortical sulci are within normal limits for patient's age. There are no areas of abnormal attenuation within the brain parenchyma. There is no mass effect or midline shift. There is no intracranial hemorrhage or abnormal extra-axial collection. The calvarium is intact. There is no evidence of fracture. Visualized paranasal sinuses and mastoid air cells are clear. IMPRESSION: No acute intracranial abnormality identified. .Patrice Tatum MD, MD Date Time Electronically viewed and signed by .Patrice Tatum MD, MD on 11/28/2018 20:53 .T/ CC: CATHI JAMES MD [id number] EKG Rate/Rhythm: Regular rate and rhythm at a normal rate Intervals: Normal Impression: No evidence of ischemia or arrhythmiaPROCEDURE: CT angiogram of the chest with contrast. CLINICAL INDICATION: Chest pain right-sided weakness. TECHNIQUE: CT angiogram of the chest was obtained using a multi-detector high-resolution CT. Contiguous axial images were obtained during the dynamic injection of 100 cc of Omnipaque 350 intravenous contrast. Coronal and sagittal reformatted images were obtained. 3-D reformatted images were also obtained. Images were reviewed on a PACS workstation. DICOM images are available. One or more of the following dose reduction techniques were used: - Automated exposure control. - Adjustment of the mA and/or kV according to patient size. - Use of iterative reconstruction technique. Exam CTD/vol = 12.18 mGy. Total exam DLP = 403.87 mGy-cm. COMPARISON: None. FINDINGS: The main pulmonary artery followed to the segmental divisions are well opacified . There is no filling defect or evidence of pulmonary embolism. The heart is normal in size. There is no pericardial thickening or effusion. The aorta is of normal course and caliber without evidence of aneurysm or dissection. There is no evidence of chest wall mass. The visualized thyroid is unremarkable. There are no enlarged axillary lymph nodes. There are no enlarged mediastinal or hilar lymph nodes by CT criteria. There is no parenchymal nodule or consolidation. There is mild bilateral dependent atelectasis. There is no pleural effusion. The central tracheobronchial tree is within normal limits. Limited evaluation of the upper abdomen is unremarkable. IMPRESSION: No evidence of pulmonary embolism or aortic dissection. .Patrice Tatum MD, MD Date Time Electronically viewed and signed by .Patrice Tatum MD, MD on 11/28/2018 20:59 .T/ CC: CATHI JAMES MD [id number] EAN GIL Nov 28, 2018 21:40
[2018-11-28] MEDS ORDERED: DOCUSATE SODIUM 100 MG CAP PO PRN (22:00)
[2018-11-28] MEDS ORDERED: NACL 0.9% 3 ML SYG IV SCH (22:00)
[2018-11-28] MEDS ORDERED: hydrALAzine 20 MG INJ IV PRN (22:00)
[2018-11-28] MEDS ORDERED: ASPIRIN 300 MG SUPP PR ONE (22:00)
[2018-11-28] MEDS ORDERED: BISACODYL (EC) 5 MG TAB PO PRN (22:00)
[2018-11-28] MEDS: ENALAPRIL 20 MG TAB PO SCH (23:00)
[2018-11-28] MEDS: CEFTRIAXONE 1 GM/50 ML (PMX) 50 ML IVPB SCH (23:07)
[2018-11-29] VITALS (11 sets, daily range): BP systolic 89–145; BP diastolic 55–68; PULSE 63–86; RESP 18–20; Ht 167.6 cm; Wt 85.6 kg
[2018-11-29] MEDS ORDERED: morphine 2 MG INJ IV PRN (02:30)
[2018-11-29] MEDS: METOPROLOL 100 MG TAB PO SCH ×3 (08:31→20:27)
[2018-11-29] MEDS: GABAPENTIN 300 MG CAP PO SCH (08:31)
[2018-11-29] MEDS: HYDROCHLOROTHIAZIDE 25 MG TAB PO SCH (08:31)
[2018-11-29] MEDS: ASPIRIN (EC) 81 MG TAB PO SCH (08:31)
[2018-11-29] MEDS: DILTIAZEM 90 MG TAB PO SCH ×3 (09:30→20:27)
[2018-11-29] MEDS: ENALAPRIL 20 MG TAB PO SCH ×2 (09:30→20:27)
--- NOTE | 2018-11-29 12:34 | PN ---
Date/Time of Note Date/Time of Note DATE: 11/29/18 TIME: 12:34 Assessment/Plan VTE Prophylaxis Risk score (from [facility] [place])>0 risk: 1 SCD applied (from [facility]): Yes Pharmacological prophylaxis: NA/contraindicated Pharm contraindication: other Lines/Catheters IV Catheter Type (from [facility] Saline Lock Assessment/Plan Assessment/Plan 1. Right sided weakness and numbness - Neurology consultation appreciated and awaiting MRI results - CT scan results noted without any acute issues - continue permissive HTN - aspirin and statin - PT/OT/speech consulted 2. HTN - patient on multiple medications but has been running hypotensive since admission. holding parameters added to BP medications 3. Right calf tenderness - US negative for DVT 4. Disposition - Continue current treatment, pending MRI results to determine further plan of care Result Diagram: 11/29/18 0604 11/29/18 0604 Results 24hrs Laboratory Tests Test 11/28/18 19:42 11/28/18 19:43 11/29/18 06:04 Prothrombin Time 12.6 Prothrombin Time Ratio 1.0 INR International 0.93 Normalized Ratio Activated Partial Thromboplast 26.9 Time Hemoglobin A1c 6.0 H 5.8 White Blood Count 7.9 # 6.6 Red Blood Count 5.23 4.77 Hemoglobin 15.3 14.0 Hematocrit 45.9 41.5 Mean Corpuscular Volume 87.8 87.0 Mean Corpuscular Hemoglobin 29.3 29.4 Mean Corpuscular 33.3 33.7 Hemoglobin Concent Red Cell Distribution Width 13.1 13.2 Platelet Count 134 L 120 L Mean Platelet Volume 12.1 H 12.2 H Immature Granulocytes % 0.300 0.200 Neutrophils % 49.7 50.6 Lymphocytes % 37.4 36.2 Monocytes % 8.0 8.6 Eosinophils % 4.2 3.9 Basophils % 0.4 0.5 Nucleated Red Blood Cells % 0.0 0.0 Immature Granulocytes # 0.020 0.010 Neutrophils # 3.9 3.4 Lymphocytes # 2.9 2.4 Monocytes # 0.6 0.6 Eosinophils # 0.3 0.3 Basophils # 0.0 0.0 Nucleated Red Blood Cells # 0.0 0.0 Urine Color YELLOW Urine Clarity SLIGHTLY CLOUDY A Urine pH 5.0 Urine Specific [place] 1.016 Urine Ketones NEGATIVE Urine Nitrite NEGATIVE Urine Bilirubin NEGATIVE Urine Urobilinogen NEGATIVE Urine Leukocyte Esterase 1+ H Urine Microscopic RBC 3 Urine Microscopic WBC 19 H Urine Squamous Epithelial Cells FEW Urine Bacteria FEW A Urine Hemoglobin 1+ H Urine Glucose NEGATIVE Urine Total Protein NEGATIVE Sodium Level 143 141 Potassium Level 4.0 4.2 Chloride Level 107 108 Carbon Dioxide Level 27 24 Anion Gap 9 9 Blood Urea Nitrogen 16 15 Creatinine 0.90 0.71 Est Glomerular Filtrat > 60 > 60 Rate mL/min Glucose Level 110 108 Calcium Level 10.1 9.0 Troponin I < 0.012 Triglycerides Level 289 H Cholesterol Level 211 H LDL Cholesterol, Calculated 118 HDL Cholesterol 35 Cholesterol/HDL Ratio 6.0 Urine Opiates Screen NEGATIVE Urine Barbiturates NEGATIVE Urine Amphetamines Screen NEGATIVE Urine Benzodiazepines Screen NEGATIVE Urine Cocaine Screen NEGATIVE Urine Cannabinoids NEGATIVE Total Bilirubin 0.3 Direct Bilirubin 0.00 Indirect Bilirubin 0.3 Aspartate Amino 75 H Transf (AST/SGOT) Alanine 53 Aminotransferase (ALT/SGPT) Alkaline Phosphatase 76 Total Protein 7.1 Albumin 3.7 Globulin 3.40 H Albumin/Globulin Ratio 1.08 Subjective 24 Hr Interval Summary Free Text/Dictation Patient still with numbness and weakness right face, UE, and LE. She states numbness in RUE has improved but still concerned about facial paraesthesia. Exam/Review of Systems Exam Vitals Vital Signs Date Temp Pulse Resp B/P (MAP) Pulse Ox O2 O2 Flow FiO2 Time Delivery Rate 11/29/18 99.6 72 20 89/56 (67) 95 Room Air 11:35 Intake and Output 11/28/18 11/28/18 11/29/18 1515:00 23:00 07:00 IntakeIntake Total 300 ml BalanceBalance 300 ml Exam General: Currently lying in bed in no acute distress Neck: Supple Chest: Nontender Lungs: Clear to auscultation bilaterally no crackles rales or wheezing Heart: Normal S1-S2, Regular rhythm and rate. No murmur, S3, or S4 Abdomen: Soft , nontender, nondistended , bowel sounds are present. No guarding no rebound tenderness Extremities: Right posterior calf tenderness to palpation Neurologic: Normal mental status, speech normal, cranial nerves II through XII are intact, diminished sensation right side of face, right upper and lower extremity. Strength 4 out of 5 in right upper and lower extremities. Decreased taffy puller strength on the right side. 5/5 LUE and LLE, sensation intact right side. No pronator drift appreciated Results Results 24hrs Laboratory Tests Test 11/28/18 19:42 11/28/18 19:43 11/29/18 06:04 Prothrombin Time 12.6 Prothrombin Time Ratio 1.0 INR International 0.93 Normalized Ratio Activated Partial Thromboplast 26.9 Time Hemoglobin A1c 6.0 H 5.8 White Blood Count 7.9 # 6.6 Red Blood Count 5.23 4.77 Hemoglobin 15.3 14.0 Hematocrit 45.9 41.5 Mean Corpuscular Volume 87.8 87.0 Mean Corpuscular Hemoglobin 29.3 29.4 Mean Corpuscular 33.3 33.7 Hemoglobin Concent Red Cell Distribution Width 13.1 13.2 Platelet Count 134 L 120 L Mean Platelet Volume 12.1 H 12.2 H Immature Granulocytes % 0.300 0.200 Neutrophils % 49.7 50.6 Lymphocytes % 37.4 36.2 Monocytes % 8.0 8.6 Eosinophils % 4.2 3.9 Basophils % 0.4 0.5 Nucleated Red Blood Cells % 0.0 0.0 Immature Granulocytes # 0.020 0.010 Neutrophils # 3.9 3.4 Lymphocytes # 2.9 2.4 Monocytes # 0.6 0.6 Eosinophils # 0.3 0.3 Basophils # 0.0 0.0 Nucleated Red Blood Cells # 0.0 0.0 Urine Color YELLOW Urine Clarity SLIGHTLY CLOUDY A Urine pH 5.0 Urine Specific [place] 1.016 Urine Ketones NEGATIVE Urine Nitrite NEGATIVE Urine Bilirubin NEGATIVE Urine Urobilinogen NEGATIVE Urine Leukocyte Esterase 1+ H Urine Microscopic RBC 3 Urine Microscopic WBC 19 H Urine Squamous Epithelial Cells FEW Urine Bacteria FEW A Urine Hemoglobin 1+ H Urine Glucose NEGATIVE Urine Total Protein NEGATIVE Sodium Level 143 141 Potassium Level 4.0 4.2 Chloride Level 107 108 Carbon Dioxide Level 27 24 Anion Gap 9 9 Blood Urea Nitrogen 16 15 Creatinine 0.90 0.71 Est Glomerular Filtrat > 60 > 60 Rate mL/min Glucose Level 110 108 Calcium Level 10.1 9.0 Troponin I < 0.012 Triglycerides Level 289 H Cholesterol Level 211 H LDL Cholesterol, Calculated 118 HDL Cholesterol 35 Cholesterol/HDL Ratio 6.0 Urine Opiates Screen NEGATIVE Urine Barbiturates NEGATIVE Urine Amphetamines Screen NEGATIVE Urine Benzodiazepines Screen NEGATIVE Urine Cocaine Screen NEGATIVE Urine Cannabinoids NEGATIVE Total Bilirubin 0.3 Direct Bilirubin 0.00 Indirect Bilirubin 0.3 Aspartate Amino 75 H Transf (AST/SGOT) Alanine 53 Aminotransferase (ALT/SGPT) Alkaline Phosphatase 76 Total Protein 7.1 Albumin 3.7 Globulin 3.40 H Albumin/Globulin Ratio 1.08 Medications Medication Current Medications Ondansetron HCl (Zofran Inj) 4 mg ER BRIDGE PRN IV NAUSEA/VOMITING; Start 11/28/18 at 21:30; Stop 11/29/18 at 21:29 Acetaminophen (Tylenol Tab) 650 mg ER BRIDGE PRN PO .MILD PAIN 1-3 OR TEMP Last administered on 11/29/18at 02:32; Admin Dose 650 MG; Start 11/28/18 at 21:30; Stop 11/29/18 at 21:29 Aspirin (Halfprin) 81 mg DAILY PO Last administered on 11/29/18at 08:31; Admin Dose 81 MG; Start 11/29/18 at 09:00 Enalapril Maleate (Vasotec) 20 mg BID PO Last administered on 11/29/18at 09:30; Admin Dose 20 MG; Start 11/28/18 at 23:00 Hydrochlorothiazide (Hydrochlorothiazide) 25 mg DAILY PO Last administered on 11/29/18at 08:31; Admin Dose 25 MG; Start 11/29/18 at 09:00 IV Flush (NS 3 ml) 3 ml PER PROTOCOL IV ; Start 11/28/18 at 22:00 Ondansetron HCl (Zofran Inj) 4 mg Q6H PRN IV NAUSEA/VOMITING; Start 11/28/18 at 22:00 Acetaminophen (Tylenol Tab) 650 mg Q6H PRN PO .PAIN 1-3 OR TEMP; Start 11/28/18 at 22:00 Docusate Sodium (Colace) 100 mg Q12H PRN PO .CONSTIPATION; Start 11/28/18 at 22:00 Bisacodyl (Dulcolax) 5 mg DAILY PRN PO .CONSTIPATION; Start 11/28/18 at 22:00 Ceftriaxone Sodium 50 ml @ 100 mls/hr Q24H IVPB Last administered on 11/28/18at 23:07; Admin Dose 100 MLS/HR; Start 11/28/18 at 22:30 Hydralazine HCl (Apresoline) 10 mg Q4H PRN IV ELEVATED BLOOD PRESSURE; Start 11/28/18 at 22:00 Morphine Sulfate (morphine) 1 mg Q4H PRN IV SEVERE PAIN LEVEL 7-10; Start 11/29/18 at 02:30 Diltiazem HCl (Cardizem) 90 mg TID PO Last administered on 11/29/18at 09:30; Admin Dose 90 MG; Start 11/29/18 at 09:00 Gabapentin (Neurontin) 300 mg DAILY PO Last administered on 11/29/18at 08:31; Admin Dose 300 MG; Start 11/29/18 at 09:00 Metoprolol Tartrate (Lopressor) 100 mg TID PO Last administered on 11/29/18at 08:31; Admin Dose 100 MG; Start 11/29/18 at 09:00 SHAAN FUCHS MD November 29, 2018 12:34
[2018-11-29] MEDS: ACETAMINOPHEN 325 MG TAB PO PRN ×2 (12:51→20:43)
[2018-11-29] MEDS ORDERED: LORAZEPAM 2 MG INJ IV PRN (13:00)
[2018-11-29] MEDS ORDERED: LORAZEPAM 2 MG INJ IV ONE (15:52)
--- NOTE | 2018-11-29 15:53 | CONS ---
Assessment/Plan Assessment/Plan Hospital Course 48 yo F with hx of HTN who presents for evaluation of R hemiparesis, hemisensory loss, and other sx... for which neurology is consulted. The clinical picture is most ominously concerning for acute ischemia. Complex migraine is a diagnosis of exclusion. HCT was unrevealing. P: Await MRI brain, MRA H/N for further characterization ASA/Lipitor pending the above Permissive HTN up to 220/110 for 24h Cont other medical management per primary Will follow clinically, to recommend neurologic studies, as necessary Consultation Date/Type/Reason Admit Date/Time Type of Consult Neurology Reason for Consultation R hemiparesis, hemisensory loss Requesting Provider: EAN GIL Date/Time of Note DATE: 11/29/18 TIME: 15:53 Hx of Present Illness 48 yo F with hx of HTN and TIA 1 year ago who presents for evaluation of R face/arm/leg weakness and numbness. History was obtained from pt and chart review. The pt confirms the story below. She states that her pattern of weakness and numbness started from her leg, before radiating up to her arm and face. She states that this exact episode has happened before, a year ago when she was diag nosed with a TIA. She continues to endorse R face/arm/leg weakness and sensory loss and that she also had headache on the R side of her head as well as blurred vision in her R eye. It is elsewhere noted: Hx of Present Illness Chief complaint: Total right-sided numbness, weakness Patient is a 48-year-old female with hypertension and TIA who presents with weakness. She said that her symptoms started yesterday at 3 PM. She initially reports that she had right upper thigh pain. Then it progressed to numbness and weakness of the right lower extremity and then to the right arm and numbness of the right face. She has had difficulty walking due to her leg weakness. She also does report tightness of her right calf. She tried ibuprofen. She reports headache and chest pain. She also reports right-sided blurry vision she recently started on hydrochlorothiazide by her primary care doctor as her blood pressures have not been well controlled. negative unless noted otherwise in HPI Exam/Review of Systems Exam Vitals Vital Signs Date Temp Pulse Resp B/P (MAP) Pulse Ox O2 O2 Flow FiO2 Time Delivery Rate 11/29/18 98.6 63 20 94/55 (68) 96 Room Air 15:31 Intake and Output 11/28/18 11/28/18 11/29/18 1515:00 23:00 07:00 IntakeIntake Total 300 ml BalanceBalance 300 ml Exam PE: Gen Appearance: No Apparent Distress HEENT: Normocephalic Cardiovascular: Regular rate Lungs: Clear bilaterally Abdomen: Soft Extremities: Dry NE: The patient was alert and oriented.. Language was normal. Fund of knowledge was normal. Pupils were equal and reactive to light. There was no afferent pupillary defect. Visual cruz were normal. Funduscopic examination was limited. Extra-ocular movements were full. Ptosis was absent. There was no nystagmus. Facial sensation was diminished on the R. Face was symmetric with normal strength. Hearing was intact. Palate movements were normal. Neck strength was normal. There was normal tongue bulk and speed of movement. Tone was normal. Muscle bulk was normal. I did not see fasciculations. Arms and legs were weak on the R. Vibration, temperature and pinprick sensation was diminished on the R. Rapid alternating movements were normal. There was no dysmetria. There was no intention tremor. Gait was deferred due to bedrest. Arm and leg reflexes were 2+ and symmetric. Dowell's sign was absent. Plantar responses were flexor. Results Result Diagram: 11/29/18 0604 11/29/18 0604 Results 24hrs Laboratory Tests Test 11/28/18 19:42 11/28/18 19:43 11/29/18 06:04 Prothrombin Time 12.6 Prothrombin Time Ratio 1.0 INR International 0.93 Normalized Ratio Activated Partial Thromboplast 26.9 Time Hemoglobin A1c 6.0 H 5.8 White Blood Count 7.9 # 6.6 Red Blood Count 5.23 4.77 Hemoglobin 15.3 14.0 Hematocrit 45.9 41.5 Mean Corpuscular Volume 87.8 87.0 Mean Corpuscular Hemoglobin 29.3 29.4 Mean Corpuscular 33.3 33.7 Hemoglobin Concent Red Cell Distribution Width 13.1 13.2 Platelet Count 134 L 120 L Mean Platelet Volume 12.1 H 12.2 H Immature Granulocytes % 0.300 0.200 Neutrophils % 49.7 50.6 Lymphocytes % 37.4 36.2 Monocytes % 8.0 8.6 Eosinophils % 4.2 3.9 Basophils % 0.4 0.5 Nucleated Red Blood Cells % 0.0 0.0 Immature Granulocytes # 0.020 0.010 Neutrophils # 3.9 3.4 Lymphocytes # 2.9 2.4 Monocytes # 0.6 0.6 Eosinophils # 0.3 0.3 Basophils # 0.0 0.0 Nucleated Red Blood Cells # 0.0 0.0 Urine Color YELLOW Urine Clarity SLIGHTLY CLOUDY A Urine pH 5.0 Urine Specific [place] 1.016 Urine Ketones NEGATIVE Urine Nitrite NEGATIVE Urine Bilirubin NEGATIVE Urine Urobilinogen NEGATIVE Urine Leukocyte Esterase 1+ H Urine Microscopic RBC 3 Urine Microscopic WBC 19 H Urine Squamous Epithelial Cells FEW Urine Bacteria FEW A Urine Hemoglobin 1+ H Urine Glucose NEGATIVE Urine Total Protein NEGATIVE Sodium Level 143 141 Potassium Level 4.0 4.2 Chloride Level 107 108 Carbon Dioxide Level 27 24 Anion Gap 9 9 Blood Urea Nitrogen 16 15 Creatinine 0.90 0.71 Est Glomerular Filtrat > 60 > 60 Rate mL/min Glucose Level 110 108 Calcium Level 10.1 9.0 Troponin I < 0.012 Triglycerides Level 289 H Cholesterol Level 211 H LDL Cholesterol, Calculated 118 HDL Cholesterol 35 Cholesterol/HDL Ratio 6.0 Urine Opiates Screen NEGATIVE Urine Barbiturates NEGATIVE Urine Amphetamines Screen NEGATIVE Urine Benzodiazepines Screen NEGATIVE Urine Cocaine Screen NEGATIVE Urine Cannabinoids NEGATIVE Phosphorus Level 4.6 Magnesium Level 2.1 Total Bilirubin 0.3 Direct Bilirubin 0.00 Indirect Bilirubin 0.3 Aspartate Amino 75 H Transf (AST/SGOT) Alanine 53 Aminotransferase (ALT/SGPT) Alkaline Phosphatase 76 Total Protein 7.1 Albumin 3.7 Globulin 3.40 H Albumin/Globulin Ratio 1.08 Vitamin B12 Level 313 Thyroid Stimulating Pending Hormone (TSH) Medications Medication Current Medications Ondansetron HCl (Zofran Inj) 4 mg ER BRIDGE PRN IV NAUSEA/VOMITING; Start 11/28/18 at 21:30; Stop 11/29/18 at 21:29 Acetaminophen (Tylenol Tab) 650 mg ER BRIDGE PRN PO .MILD PAIN 1-3 OR TEMP Last administered on 11/29/18at 02:32; Admin Dose 650 MG; Start 11/28/18 at 21:30; Stop 11/29/18 at 21:29 Aspirin (Halfprin) 81 mg DAILY PO Last administered on 11/29/18at 08:31; Admin Dose 81 MG; Start 11/29/18 at 09:00 Enalapril Maleate (Vasotec) 20 mg BID PO Last administered on 11/29/18at 09:30; Admin Dose 20 MG; Start 11/28/18 at 23:00 Hydrochlorothiazide (Hydrochlorothiazide) 25 mg DAILY PO Last administered on 11/29/18at 08:31; Admin Dose 25 MG; Start 11/29/18 at 09:00 IV Flush (NS 3 ml) 3 ml PER PROTOCOL IV ; Start 11/28/18 at 22:00 Ondansetron HCl (Zofran Inj) 4 mg Q6H PRN IV NAUSEA/VOMITING; Start 11/28/18 at 22:00 Acetaminophen (Tylenol Tab) 650 mg Q6H PRN PO .PAIN 1-3 OR TEMP Last administered on 11/29/18at 12:51; Admin Dose 650 MG; Start 11/28/18 at 22:00 Docusate Sodium (Colace) 100 mg Q12H PRN PO .CONSTIPATION; Start 11/28/18 at 22:00 Bisacodyl (Dulcolax) 5 mg DAILY PRN PO .CONSTIPATION; Start 11/28/18 at 22:00 Ceftriaxone Sodium 50 ml @ 100 mls/hr Q24H IVPB Last administered on 11/28/18at 23:07; Admin Dose 100 MLS/HR; Start 11/28/18 at 22:30 Hydralazine HCl (Apresoline) 10 mg Q4H PRN IV ELEVATED BLOOD PRESSURE; Start 11/28/18 at 22:00 Morphine Sulfate (morphine) 1 mg Q4H PRN IV SEVERE PAIN LEVEL 7-10; Start 11/29/18 at 02:30 Diltiazem HCl (Cardizem) 90 mg TID PO Last administered on 11/29/18 09:30; Admin Dose 90 MG; Start 11/29/18 at 09:00 Gabapentin (Neurontin) 300 mg DAILY PO Last administered on 11/29/18at 08:31; Admin Dose 300 MG; Start 11/29/18 at 09:00 Metoprolol Tartrate (Lopressor) 100 mg TID PO Last administered on 11/29/18at 08:31; Admin Dose 100 MG; Start 11/29/18 at 09:00 Lorazepam (Ativan) 1 mg ONCE ONCE IV ; Start 11/29/18 at 16:00; Stop 11/29/18 at 16:01; Status UNV Past Medical History reviewed Home Meds Active Scripts Ibuprofen* (Motrin*) 800 Mg Tab, 800 MG PO Q6H PRN for PAIN AND OR ELEVATED TEMP, #30 TAB Prov:HELEN FRANCISCO DO 08/01/18 Reported Medications Gabapentin* (Gabapentin*) 300 Mg Capsule, 300 MG PO prn PRN for PAIN, #60 CAP 08/01/18 Hydrochlorothiazide* (Hydrochlorothiazide*) 25 Mg Tab, 25 MG PO DAILY, #30 TAB 06/05/18 Diltiazem Hcl* (Cardizem SR*) 90 Mg Capsr, 90 MG PO TID, #60 CAP 06/05/18 Metoprolol Tartrate* (Lopressor*) 100 Mg Tablet, 100 MG PO TID, #60 TAB 06/05/18 Enalapril Maleate* (Enalapril Maleate*) 20 Mg Tablet, 20 MG PO BID, TAB 06/05/18 Aspirin* (Aspirin* EC) 81 Mg Tablet.dr, 81 MG PO DAILY, TAB 12/07/17 Discontinued Scripts Oseltamivir Phosphate* (Tamiflu*) 75 Mg Capsule, 75 MG PO BID for 5 Days, CAP Prov:HELEN FRANCISCO DO 08/01/18 Dicyclomine HCl (Dicyclomine HCl) 10 Mg Capsule, 20 MG PO TID PRN for ABDOMINAL CRAMPING, #20 CAP Prov:HELEN FRANCISCO DO 08/01/18 Hydrocodone/Acetaminophen ([place] 5-325 Tablet) 1 Each Tablet, 1 TAB PO Q6H PRN for PAIN, #7 TAB Prov:HELEN FRANCISCO DO 08/01/18 Medications Current Medications Ondansetron HCl (Zofran Inj) 4 mg ER BRIDGE PRN IV NAUSEA/VOMITING; Start at 21:30; Stop 11/29/18 at 21:29 Acetaminophen (Tylenol Tab) 650 mg ER BRIDGE PRN PO .MILD PAIN 1-3 OR TEMP Last administered on 11/29/18at 02:32; Admin Dose 650 MG; Start 11/28/18 at 21:30; Stop 11/29/18 at 21:29 Aspirin (Halfprin) 81 mg DAILY PO Last administered on 11/29/18 08:31; Admin Dose 81 MG; Start 11/29/18 at 09:00 Enalapril Maleate (Vasotec) 20 mg BID PO Last administered on 11/29/18 09:30; Admin Dose 20 MG; Start 11/28/18 at 23:00 Hydrochlorothiazide (Hydrochlorothiazide) 25 mg DAILY PO Last administered on 11/29/18 08:31; Admin Dose 25 MG; Start 11/29/18 at 09:00 IV Flush (NS 3 ml) 3 ml PER PROTOCOL IV ; Start 11/28/18 at 22:00 Ondansetron HCl (Zofran Inj) 4 mg Q6H PRN IV NAUSEA/VOMITING; Start 11/28/18 at 22:00 Acetaminophen (Tylenol Tab) 650 mg Q6H PRN PO .PAIN 1-3 OR TEMP Last administered on 11/29/18at 12:51; Admin Dose 650 MG; Start 11/28/18 at 22:00 Docusate Sodium (Colace) 100 mg Q12H PRN PO .CONSTIPATION; Start 11/28/18 at 22:00 Bisacodyl (Dulcolax) 5 mg DAILY PRN PO .CONSTIPATION; Start 11/28/18 at 22:00 Ceftriaxone Sodium 50 ml @ 100 mls/hr Q24H IVPB Last administered on 11/28/18at 23:07; Admin Dose 100 MLS/HR; Start 11/28/18 at 22:30 Hydralazine HCl (Apresoline) 10 mg Q4H PRN IV ELEVATED BLOOD PRESSURE; Start 11/28/18 at 22:00 Morphine Sulfate (morphine) 1 mg Q4H PRN IV SEVERE PAIN LEVEL 7-10; Start 11/29/18 at 02:30 Diltiazem HCl (Cardizem) 90 mg TID PO Last administered on 11/29/18 09:30; Admin Dose 90 MG; Start 11/29/18 at 09:00 Gabapentin (Neurontin) 300 mg DAILY PO Last administered on 11/29/18 08:31; Admin Dose 300 MG; Start 11/29/18 at 09:00 Metoprolol Tartrate (Lopressor) 100 mg TID PO Last administered on 5/1/19at 08:31; Admin Dose 100 MG; Start 11/29/18 at 09:00 Lorazepam (Ativan) 1 mg ONCE ONCE IV ; Start 11/29/18 at 16:00; Stop 11/29/18 at 16:01; Status UNV Allergies: Coded Allergies: No Known Allergies (Unverified Allergy, Mild, 11/28/18) Past Surgical History reviewed Past Surgical Hx: other Social History reviewed Alcohol Use: none Smoking Status: Never smoker Drug Use: none PAPO FISHER NP November 29, 2018 15:53 MOLLY FISHER November 29, 2018 20:28
--- NOTE | 2018-11-29 19:16 | RADRPT ---
Report amended on 2018-11-29 at 7:41 PM: Added/Modified: Atrial Septum: [MODIFIED TEXT] Bubble study: Bubble study was performed with and with out valsalva and was equivocal for evidence of intra atrial shunt. Conclusions: [MODIFIED TEXT] Atrial Septum Findings: Bubble study was performed with and with out valsalva and was equivocal for evidence of intra atrial shunt. [MODIFIED TEXT] Conclusions: Normal left ventricular systolic function. Normal left ventricular cavity size. Mild concentric left ventricular hypertrophy. Mild global left ventricular systolic dysfunction. Ejection fraction is visually estimated at 45-50 %. Tissue Doppler/Mitral Doppler indices are within normal limits. Bubble study was performed with and with out valsalva and was equivocal for evidence of intra atrial shunt. For ongoing concern consider repeating study. Normal appearance and function of the mitral valve with trace physiologic regurgitation. Normal appearance of the tricuspid valve. Estimated peak PA systolic pressure 19 mmHg. There is mild tricuspid regurgitation. Electronically Signed by: Kelton Tao 2018-11-29 19:41:10 PDT
[2018-11-29] MEDS: CEFTRIAXONE 1 GM/50 ML (PMX) 50 ML IVPB SCH (22:17)
[2018-11-30] VITALS (15 sets, daily range): BP systolic 92–118; BP diastolic 52–73; PULSE 65–92; RESP 18–20
[2018-11-30] MEDS: HYDROCHLOROTHIAZIDE 25 MG TAB PO SCH (08:38)
[2018-11-30] MEDS: ASPIRIN (EC) 81 MG TAB PO SCH (08:38)
[2018-11-30] MEDS: DILTIAZEM 90 MG TAB PO SCH ×3 (08:38→20:20)
[2018-11-30] MEDS: METOPROLOL 100 MG TAB PO SCH ×3 (08:38→20:20)
[2018-11-30] MEDS: ENALAPRIL 20 MG TAB PO SCH ×2 (08:39→20:19)
[2018-11-30] MEDS: GABAPENTIN 300 MG CAP PO SCH (08:39)
[2018-11-30] MEDS ORDERED: SOD CHLORIDE 0.9% 1,000 ML IV ONE (12:30)
[2018-11-30] MEDS: ACETAMINOPHEN 325 MG TAB PO PRN (12:42)
--- NOTE | 2018-11-30 14:41 | CONS ---
Assessment/Plan Assessment/Plan Hospital Course 48 yo F with hx of HTN who presents for evaluation of R hemiparesis, hemisensory loss, and other sx... for which neurology is consulted. Most clinically consistent with complex migraine. MRI brain was reassuringly negative for acute intracranial pathology. MRA H/N was the same. P: Toradol IV x1 with trial of Naproxen (with protonix) for pain PT/OT as necessary Other medical management and supportive care per primary Will follow clinically Consultation Date/Type/Reason Admit Date/Time Nov 28, 2018 at 21:21 Type of Consult Neurology Reason for Consultation R hemiparesis, hemisensory loss Requesting Provider: EAN GIL Date/Time of Note DATE: 11/30/18 TIME: 14:40 24 HR Interval Summary Free Text/Dictation Continues acute care. S/p MRI/MRA. Pt still has c/o R sided headache with piercing pain behind R eye with associated eye tearing and R sided weakness/numbness. Exam Vital Signs Vitals Vital Signs Date Temp Pulse Resp B/P (MAP) Pulse Ox O2 O2 Flow FiO2 Time Delivery Rate 11/30/18 92/52 (65) 13:28 11/30/18 65 12:00 11/30/18 98.6 20 93 11:25 11/30/18 Room Air 04:31 Intake and Output 11/29/18 11/29/18 11/30/18 1515:00 23:00 07:00 IntakeIntake Total 850 ml BalanceBalance 850 ml Exam PE: Gen Appearance: No Apparent Distress HEENT: Normocephalic Cardiovascular: Regular rate Lungs: Clear bilaterally Abdomen: Soft Extremities: Dry NE: The patient was alert and oriented.. Language was normal. Fund of knowledge was normal. Pupils were equal and reactive to light. There was no afferent pupillary defect. Visual cruz were normal. Funduscopic examination was limited. Extra-ocular movements were full. Ptosis was absent. There was no nystagmus. Facial sensation was diminished on the R. Face was symmetric with normal strength. Hearing was intact. Palate movements were normal. Neck strength was normal. There was normal tongue bulk and speed of movement. Tone was normal. Muscle bulk was normal. I did not see fasciculations. Arms and legs were weak on the R. Vibration, temperature and pinprick sensation was diminished on the R. Rapid alternating movements were normal. There was no dysmetria. There was no intention tremor. Gait was deferred due to bedrest. Arm and leg reflexes were 2+ and symmetric. Dowell's sign was absent. Plantar responses were flexor. PAPO FISHER NP November 30, 2018 14:41 MOLLY FISHER December 01, 2018 06:43
[2018-11-30] MEDS ORDERED: KETOROLAC 30 MG INJ IV STA (15:45)
--- NOTE | 2018-11-30 16:32 | PN ---
Date/Time of Note Date/Time of Note DATE: 11/30/18 TIME: 16:28 Assessment/Plan VTE Prophylaxis Risk score (from Ns)>0 risk: 4 [place] [facility] [place] Pharmacological prophylaxis: NA/contraindicated Pharm contraindication: other Lines/Catheters [facility] Peripheral IV Urinary Cath still in place: No Assessment/Plan Assessment/Plan 1. Right sided weakness and numbness - Neurology consultation appreciated and will touch base on further thoughts regarding patients symptoms given her MRI/MRA findings are nonrevealing - aspirin and statin - PT/OT/speech consultation appreciated 2. HTN - BP running low 3. Right calf tenderness - US negative for DVT 4. Disposition - Awaiting further recommendations from Neurology. Will monitor progression with PT to determine discharge planning Result Diagram: 11/29/1804 11/29/18 0604 Subjective 24 Hr Interval Summary Free Text/Dictation Patient still with right sided numbness and pain with watering of right eye. P atient denies any trauma to area and states she was dx with TIA in the past but sx lasted 2 months. Discussed patient most likely had a stroke in the past. Denies symptoms being associated with stress and no headache noted. Exam/Review of Systems Exam Vitals Vital Signs Date Temp Pulse Resp B/P (MAP) Pulse Ox O2 O2 Flow FiO2 Time Delivery Rate 11/30/18 98.6 75 20 109/64 96 15:31 (79) 11/30/18 Room Air 04:31 Intake and Output 11/29/18 11/29/18 11/30/18 1515:00 23:00 07:00 IntakeIntake Total 850 ml BalanceBalance 850 ml Exam General: Currently lying in bed in no acute distress Neck: Supple Chest: Nontender Eyes: blood shot right eye Lungs: Clear to auscultation bilaterally no crackles rales or wheezing Heart: Normal S1-S2, Regular rhythm and rate. No murmur, S3, or S4 Abdomen: Soft , nontender, nondistended , bowel sounds are present. No guarding no rebound tenderness Extremities: Right posterior calf tenderness to palpation Neurologic: Normal mental status, speech normal, cranial nerves II through XII are intact, diminished sensation right side of face, right upper and lower extremity. Strength 4 out of 5 in right upper and lower extremities. 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 5/5 LUE and LLE, sensation intact right side. Medications Medication Current Medications Aspirin (Halfprin) 81 mg DAILY PO Last administered on 11/30/18 08:38; Admin Dose 81 MG; Start 11/29/18 at 09:00 Enalapril Maleate (Vasotec) 20 mg BID PO Last administered on 11/30/18 08:39; Admin Dose 20 MG; Start 11/28/18 at 23:00 Hydrochlorothiazide (Hydrochlorothiazide) 25 mg DAILY PO Last administered on 11/29/18 08:31; Admin Dose 25 MG; Start 11/29/18 at 09:00 IV Flush (NS 3 ml) 3 ml PER PROTOCOL IV ; Start 11/28/18 at 22:00 Ondansetron HCl (Zofran Inj) 4 mg Q6H PRN IV NAUSEA/VOMITING; Start 11/28/18 at 22:00 Acetaminophen (Tylenol Tab) 650 mg Q6H PRN PO .PAIN 1-3 OR TEMP Last admini stered on 11/30/18at 12:42; Admin Dose 650 MG; Start 11/28/18 at 22:00 Docusate Sodium (Colace) 100 mg Q12H PRN PO .CONSTIPATION; Start 11/28/18 at 22:00 Bisacodyl (Dulcolax) 5 mg DAILY PRN PO .CONSTIPATION; Start 11/28/18 at 22:00 Ceftriaxone Sodium 50 ml @ 100 mls/hr Q24H IVPB Last administered on 11/29/18at 22:17; Admin Dose 100 MLS/HR; Start 11/28/18 at 22:30 Hydralazine HCl (Apresoline) 10 mg Q4H PRN IV ELEVATED BLOOD PRESSURE; Start 11/28/18 at 22:00 Morphine Sulfate (morphine) 1 mg Q4H PRN IV SEVERE PAIN LEVEL 7-10; Start 11/29/18 at 02:30 Diltiazem HCl (Cardizem) 90 mg TID PO Last administered on 11/30/18 08:38; Admin Dose 90 MG; Start 11/29/18 at 09:00 Gabapentin (Neurontin) 300 mg DAILY PO Last administered on 11/30/18 08:39; Admin Dose 300 MG; Start 11/29/18 at 09:00 Metoprolol Tartrate (Lopressor) 100 mg TID PO Last administered on 11/30/18at 08:38; Admin Dose 100 MG; Start 11/29/18 at 09:00 Naproxen (Naprosyn) 250 mg BID PO ; Start 11/30/18 at 21:00 Pantoprazole (Protonix Tab) 40 mg DAILY@06 PO ; Start 12/01/18 at 06:00 SHAAN FUCHS MD November 30, 2018 16:32
[2018-11-30] MEDS: NAPROXEN 250 MG TAB PO SCH (20:19)
[2018-11-30] MEDS: CEFTRIAXONE 1 GM/50 ML (PMX) 50 ML IVPB SCH (22:27)
[2018-12-01] VITALS (13 sets, daily range): BP systolic 94–123; BP diastolic 53–72; PULSE 59–83; RESP 19–20
[2018-12-01] MEDS: ACETAMINOPHEN 325 MG TAB PO PRN ×2 (01:03→10:23)
[2018-12-01] MEDS: PANTOPRAZOLE (EC) 40 MG TAB PO SCH (06:15)
[2018-12-01] MEDS: ASPIRIN (EC) 81 MG TAB PO SCH (08:36)
[2018-12-01] MEDS: GABAPENTIN 300 MG CAP PO SCH (08:36)
[2018-12-01] MEDS: NAPROXEN 250 MG TAB PO SCH ×2 (08:36→22:24)
[2018-12-01] MEDS: HYDROCHLOROTHIAZIDE 25 MG TAB PO SCH (08:37)
[2018-12-01] MEDS: METOPROLOL 100 MG TAB PO SCH ×3 (08:38→22:25)
[2018-12-01] MEDS: DILTIAZEM 90 MG TAB PO SCH ×3 (08:39→22:24)
[2018-12-01] MEDS: ENALAPRIL 20 MG TAB PO SCH ×3 (08:39→22:24)
[2018-12-01] MEDS: DEXTROSE 5%-0.45% NACL 1,000 ML IV SCH ×2 (10:49→22:32)
--- NOTE | 2018-12-01 10:55 | PN ---
Date/Time of Note Date/Time of Note DATE: 12/01/18 TIME: 10:55 Assessment/Plan VTE Prophylaxis Risk score (from Ns)>0 risk: 4 SCD applied (from Ns): Yes Pharmacological prophylaxis: NA/contraindicated Pharm contraindication: low risk/ambulating Lines/Catheters [facility] Saline Lock Urinary Cath still in place: No Assessment/Plan Assessment/Plan 1. Right sided weakness and numbness - stroke workup negative and most likely complex migraines. Given Toradol with some relief and trial of NSAIDs. will monitor for improvement in symptoms - Neurology consultation appreciated - aspirin and statin - PT/OT/speech consultation appreciated - PT recommending ARU 2. HTN - BP running low and meds with holding parameters 3. Right calf tenderness - US negative for DVT 4. Disposition - Continue trial of NSAIDs and monitor for improvement of weakness. CM consulted for ARU vs SNF Result Diagram: 11/29/18 0604 11/29/18 0604 Results 24hrs Laboratory Tests Test 11/30/18 15:36 Erythrocyte Sedimentation Rate 6 Subjective 24 Hr Interval Summary Free Text/Dictation Patient still with pain and numbness right arm. States pain and discomfort in right side of face has improved. Still with weakness of right lower extremity. Exam/Review of Systems Exam Vitals Vital Signs Date Temp Pulse Resp B/P (MAP) Pulse Ox O2 O2 Flow FiO2 Time Delivery Rate 12/01/18 98.3 69 20 106/63 95 Room Air 10:40 (77) Intake and Output 11/30/18 11/30/18 12/01/18 1515:00 23:00 07:00 IntakeIntake Total 550 ml 480 ml BalanceBalance 550 ml 480 ml Exam General: Currently lying in bed in no acute distress Eyes: tearing right eye, no erythema or discharge Lungs: Clear to auscultation bilaterally no crackles rales or wheezing Heart: Normal S1-S2, Regular rhythm and rate. No murmur, S3, or S4 Abdomen: Soft , nontender, nondistended , bowel sounds are present. No guarding no rebound tenderness Extremities: Right posterior calf tenderness to palpation Neurologic: Normal mental status, speech normal, cranial nerves II through XII are intact, improved sensation right side of face. Strength 4/5 in right upper and 3/5 lower extremities. 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 5/5 LUE and LLE, sensation intact right side. Results Results 24hrs Laboratory Tests Test 11/30/18 15:36 Erythrocyte Sedimentation Rate 6 Medications Medication Current Medications Aspirin (Halfprin) 81 mg DAILY PO Last administered on 12/01/18 08:36; Admin Dose 81 MG; Start 11/29/18 at 09:00 Enalapril Maleate (Vasotec) 20 mg BID PO Last administered on 11/30/18 20:19; Admin Dose 20 MG; Start 11/28/18 at 23:00 Hydrochlorothiazide (Hydrochlorothiazide) 25 mg DAILY PO Last administered on 11/29/18 08:31; Admin Dose 25 MG; Start 11/29/18 at 09:00 IV Flush (NS 3 ml) 3 ml PER PROTOCOL IV ; Start 11/28/18 at 22:00 Ondansetron HCl (Zofran Inj) 4 mg Q6H PRN IV NAUSEA/VOMITING; Start 11/28/18 at 22:00 Acetaminophen (Tylenol Tab) 650 mg Q6H PRN PO .PAIN 1-3 OR TEMP Last administered on 12/01/18at 10:23; Admin Dose 650 MG; Start 11/28/18 at 22:00 Docusate Sodium (Colace) 100 mg Q12H PRN PO .CONSTIPATION; Start 11/28/18 at 22:00 Bisacodyl (Dulcolax) 5 mg DAILY PRN PO .CONSTIPATION; Start 11/28/18 at 22:00 Ceftriaxone Sodium 50 ml @ 100 mls/hr Q24H IVPB Last administered on 11/30/18at 22:27; Admin Dose 100 MLS/HR; Start 11/28/18 at 22:30 Hydralazine HCl (Apresoline) 10 mg Q4H PRN IV ELEVATED BLOOD PRESSURE; Start 11/28/18 at 22:00 Morphine Sulfate (morphine) 1 mg Q4H PRN IV SEVERE PAIN LEVEL 7-10; Start 11/29/18 at 02:30 Diltiazem HCl (Cardizem) 90 mg TID PO Last administered on 12/01/18 08:39; Admin Dose 90 MG; Start 11/29/18 at 09:00 Gabapentin (Neurontin) 300 mg DAILY PO Last administered on 12/01/18 08:36; Admin Dose 300 MG; Start 11/29/18 at 09:00 Metoprolol Tartrate (Lopressor) 100 mg TID PO Last administered on 12/01/18at 08:38; Admin Dose 100 MG; Start 11/29/18 at 09:00 Naproxen (Naprosyn) 250 mg BID PO Last administered on 12/01/18at 08:36; Admin Dose 250 MG; Start 11/30/18 at 21:00 Pantoprazole (Protonix Tab) 40 mg DAILY@06 PO Last administered on 12/01/18at 06:15; Admin Dose 40 MG; Start 12/01/18 at 06:00 Dextrose/Sodium Chloride 1,000 ml @ 100 mls/hr Q10H IV Last administered on 12/01/18at 10:49; Admin Dose 100 MLS/HR; Start 12/01/18 at 10:30 SHAAN FUCHS MD December 01, 2018 10:55
--- NOTE | 2018-12-01 12:06 | CONS ---
Assessment/Plan Assessment/Plan Hospital Course 48 yo F with hx of HTN who presents for evaluation of R hemiparesis, hemisensory loss, and other sx... for which neurology is consulted. Most clinically consistent with complex migraine. MRI brain was reassuringly negative for acute intracranial pathology. MRA H/N was the same. P: Cont trial of Naproxen (with protonix) for pain PT/OT as necessary Other medical management and supportive care per primary Will follow clinically Consultation Date/Type/Reason Admit Date/Time Nov 28, 2018 at 21:21 Type of Consult Neurology Reason for Consultation R hemiparesis, hemisensory loss Requesting Provider: EAN GIL Date/Time of Note DATE: 12/01/18 TIME: 12:06 24 HR Interval Summary Free Text/Dictation Continues acute care. Pt states that she feels like her weakness has gotten worse today. States that her headache has improved slightly Exam Vital Signs Vitals Vital Signs Date Temp Pulse Resp B/P (MAP) Pulse Ox O2 O2 Flow FiO2 Time Delivery Rate 12/01/18 98.3 69 20 106/63 95 Room Air 10:40 (77) Intake and Output 11/30/18 11/30/18 12/01/18 1515:00 23:00 07:00 IntakeIntake Total 550 ml 480 ml BalanceBalance 550 ml 480 ml Exam PE: Gen Appearance: No Apparent Distress HEENT: Normocephalic Cardiovascular: Regular rate Lungs: Clear bilaterally Abdomen: Soft Extremities: Dry NE: The patient was alert and oriented.. Language was normal. Fund of knowledge was normal. Pupils were equal and reactive to light. There was no afferent pupillary defect. Visual cruz were normal. Funduscopic examination was limited. Extra-ocular movements were full. Ptosis was absent. There was no nystagmus. Facial sensation was diminished on the R. Face was symmetric with normal strength. Hearing was intact. Palate movements were normal. Neck strength was normal. There was normal tongue bulk and speed of movement. Tone was normal. Muscle bulk was normal. I did not see fasciculations. Arms and legs were weak on the R, though improved Vibration, temperature and pinprick sensation was diminished on the R. Rapid alternating movements were normal. There was no dysmetria. There was no intention tremor. Gait was deferred due to bedrest. Arm and leg reflexes were 2+ and symmetric. Dowell's sign was absent. Plantar responses were flexor. PAPO FISHER NP December 01, 2018 12:06
[2018-12-01] MEDS: CEFTRIAXONE 1 GM/50 ML (PMX) 50 ML IVPB SCH (22:23)
[2018-12-02] VITALS (11 sets, daily range): BP systolic 83–116; BP diastolic 62–74; PULSE 51–67; RESP 18–20
[2018-12-02] MEDS: PANTOPRAZOLE (EC) 40 MG TAB PO SCH (05:03)
[2018-12-02] MEDS: DEXTROSE 5%-0.45% NACL 1,000 ML IV SCH (06:30)
[2018-12-02] MEDS: METOPROLOL 100 MG TAB PO SCH ×3 (08:28→21:09)
[2018-12-02] MEDS: ASPIRIN (EC) 81 MG TAB PO SCH (08:28)
[2018-12-02] MEDS: ENALAPRIL 20 MG TAB PO SCH ×2 (08:29→21:08)
[2018-12-02] MEDS: HYDROCHLOROTHIAZIDE 25 MG TAB PO SCH (08:29)
[2018-12-02] MEDS: NAPROXEN 250 MG TAB PO SCH ×2 (08:29→21:07)
[2018-12-02] MEDS: GABAPENTIN 300 MG CAP PO SCH (08:29)
[2018-12-02] MEDS: DILTIAZEM 90 MG TAB PO SCH ×3 (08:29→21:09)
--- NOTE | 2018-12-02 12:32 | CONS ---
Assessment/Plan Assessment/Plan Hospital Course 48 yo F with hx of HTN who presents for evaluation of R hemiparesis, hemisensory loss, and other sx... for which neurology is consulted. Most clinically consistent with complex migraine. MRI brain was reassuringly negative for acute intracranial pathology. MRA H/N was the same. P: Continue Naproxen (with protonix) for pain, as needed PT/OT as necessary Other medical management and supportive care per primary Will follow clinically Consultation Date/Type/Reason Admit Date/Time Nov 28, 2018 at 21:21 Type of Consult Neurology Reason for Consultation weakness and h/a Requesting Provider: EAN GIL Date/Time of Note DATE: 12/02/18 TIME: 12:31 24 HR Interval Summary Free Text/Dictation states that R hemiparesis and headache are improved some Exam Vital Signs Vitals Vital Signs Date Temp Pulse Resp B/P (MAP) Pulse Ox O2 O2 Flow FiO2 Time Delivery Rate 12/02/18 67 12:09 12/02/18 97.6 20 116/74 97 Room Air 11:17 (88) Intake and Output 12/01/18 12/01/18 12/02/18 1515:00 23:00 07:00 IntakeIntake Total 1200 ml 1750 ml BalanceBalance 1200 ml 1750 ml Exam PE: Gen Appearance: No Apparent Distress HEENT: Normocephalic Cardiovascular: Regular rate Lungs: Clear bilaterally Abdomen: Soft Extremities: Dry NE: The patient was alert and oriented. Language was normal. Fund of knowledge was normal. Pupils were equal and reactive to light. There was no afferent pupillary defect. Visual cruz were normal. Funduscopic examination was limited. Extra-ocular movements were full. Ptosis was absent. There was no nystagmus. Facial sensation was normal. Face was symmetric with normal strength. Hearing was intact. Palate movements were normal. Neck strength was normal. There was normal tongue bulk and speed of movement. Tone was normal. Muscle bulk was normal. I did not see fasciculations. Arms and legs were strong. Vibration sensation was normal. Temperature and pinprick sensation was normal. Rapid alternating movements were normal. There was no dysmetria. There was no intention tremor. Gait was deferred due to bedrest. Arm and leg reflexes were 2+ and symmetric. Dowell's sign was absent. Plantar responses were flexor. IDOKO,MOLLY December 02, 2018 12:32
--- NOTE | 2018-12-02 12:48 | PN ---
Date/Time of Note Date/Time of Note DATE: 12/02/18 TIME: 12:43 Assessment/Plan VTE Prophylaxis Risk score (from Ns)>0 risk: 4 SCD applied (from Ns): Yes Pharmacological prophylaxis: NA/contraindicated Pharm contraindication: low risk/ambulating Lines/Catheters IV Catheter Type (from Nrsg): Peripheral IV Urinary Cath still in place: No Assessment/Plan Assessment/Plan 1. Right sided weakness and numbness secondary to Complex migrain- improving - stroke workup negative and most likely complex migraines. Continue on NSAID per Neurology recommendations - Neurology consultation appreciated - aspirin and statin - PT/OT/speech consultation appreciated - PT recommending ARU 2. HTN - BP improving 3. Right calf tenderness - US negative for DVT 4. Disposition - CM consulted for Rehab placement. Continue working with PT and monitor for improvement in gait/strength Result Diagram: 11/29/18 0604 11/29/18 0604 Subjective 24 Hr Interval Summary Free Text/Dictation Patient states shes feeling a little better this am but now with right sided headache. Exam/Review of Systems Exam Vitals Vital Signs Date Temp Pulse Resp B/P (MAP) Pulse Ox O2 O2 Flow FiO2 Time Delivery Rate 12/02/18 67 12:09 12/02/18 97.6 20 116/74 97 Room Air 11:17 (88) Intake and Output 12/01/18 12/01/18 12/02/18 1515:00 23:00 07:00 IntakeIntake Total 1200 ml 1750 ml BalanceBalance 1200 ml 1750 ml Exam General: Currently sitting on edge of bed, no acute distress Lungs: Clear to auscultation bilaterally no crackles rales or wheezing Heart: Normal S1-S2, Regular rhythm and rate. No murmur, S3, or S4 Abdomen: Soft , nontender, nondistended , bowel sounds are present. No guarding no rebound tenderness Extremities: Right posterior calf tenderness to palpation Neurologic: Normal mental status, speech normal, cranial nerves II through XII are intact, improved sensation right side of face. Strength 4/5 in right upper and 3/5 lower extremities. 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 5/5 LUE and LLE, sensation intact right side. Medications Medication Current Medications Aspirin (Halfprin) 81 mg DAILY PO Last administered on 12/02/18at 08:28; Admin Dose 81 MG; Start 5/1/19 at 09:00 Enalapril Maleate (Vasotec) 20 mg BID PO Last administered on 12/02/18 08:29; Admin Dose 20 MG; Start 11/28/18 at 23:00 Hydrochlorothiazide (Hydrochlorothiazide) 25 mg DAILY PO Last administered on 12/02/18 08:29; Admin Dose 25 MG; Start 11/29/18 at 09:00 IV Flush (NS 3 ml) 3 ml PER PROTOCOL IV ; Start 11/28/18 at 22:00 Ondansetron HCl (Zofran Inj) 4 mg Q6H PRN IV NAUSEA/VOMITING; Start 11/28/18 at 22:00 Acetaminophen (Tylenol Tab) 650 mg Q6H PRN PO .PAIN 1-3 OR TEMP Last administered on 12/01/18 10:23; Admin Dose 650 MG; Start 11/28/18 at 22:00 Docusate Sodium (Colace) 100 mg Q12H PRN PO .CONSTIPATION; Start 11/28/18 at 22:00 Bisacodyl (Dulcolax) 5 mg DAILY PRN PO .CONSTIPATION; Start 11/28/18 at 22:00 Ceftriaxone Sodium 50 ml @ 100 mls/hr Q24H IVPB Last administered on 12/01/18 22:23; Admin Dose 100 MLS/HR; Start 11/28/18 at 22:30 Hydralazine HCl (Apresoline) 10 mg Q4H PRN IV ELEVATED BLOOD PRESSURE; Start 11/28/18 at 22:00 Morphine Sulfate (morphine) 1 mg Q4H PRN IV SEVERE PAIN LEVEL 7-10; Start 11/29/18 at 02:30 Diltiazem HCl (Cardizem) 90 mg TID PO Last administered on 12/02/18 08:29; Admin Dose 90 MG; Start 11/29/18 at 09:00 Gabapentin (Neurontin) 300 mg DAILY PO Last administered on 12/02/18 08:29; Admin Dose 300 MG; Start 11/29/18 at 09:00 Metoprolol Tartrate (Lopressor) 100 mg TID PO Last administered on 12/02/18 08:28; Admin Dose 100 MG; Start 11/29/18 at 09:00 Naproxen (Naprosyn) 250 mg BID PO Last administered on 12/02/18at 08:29; Admin Dose 250 MG; Start 11/30/18 at 21:00 Pantoprazole (Protonix Tab) 40 mg DAILY@06 PO Last administered on 12/02/18at 05:03; Admin Dose 40 MG; Start 12/01/18 at 06:00 SHAAN FUCHS MD December 02, 2018 12:48
[2018-12-02] MEDS: ACETAMINOPHEN 325 MG TAB PO PRN (15:41)
[2018-12-02] MEDS: CEFTRIAXONE 1 GM/50 ML (PMX) 50 ML IVPB SCH (21:35)
[2018-12-03] VITALS (11 sets, daily range): BP systolic 93–121; BP diastolic 56–72; PULSE 44–77; RESP 16–18
[2018-12-03] MEDS: PANTOPRAZOLE (EC) 40 MG TAB PO SCH (05:42)
[2018-12-03] MEDS: METOPROLOL 100 MG TAB PO SCH ×3 (07:50→21:34)
[2018-12-03] MEDS: DILTIAZEM 90 MG TAB PO SCH ×3 (07:50→21:33)
[2018-12-03] MEDS: ASPIRIN (EC) 81 MG TAB PO SCH (08:38)
[2018-12-03] MEDS: NAPROXEN 250 MG TAB PO SCH ×2 (08:38→21:33)
[2018-12-03] MEDS: GABAPENTIN 300 MG CAP PO SCH (08:38)
[2018-12-03] MEDS: ENALAPRIL 20 MG TAB PO SCH ×2 (08:39→21:33)
[2018-12-03] MEDS: HYDROCHLOROTHIAZIDE 25 MG TAB PO SCH (08:39)
--- NOTE | 2018-12-03 10:16 | PN ---
Date/Time of Note Date/Time of Note DATE: 12/03/18 TIME: 10:16 Assessment/Plan VTE Prophylaxis Risk score (from Nsg)>0 risk: 3 SCD applied (from Nsg): Yes Pharmacological prophylaxis: LMWH Lines/Catheters IV Catheter Type (from Nrsg): Peripheral IV Urinary Cath still in place: No Assessment/Plan Assessment/Plan 1. Right sided weakness and numbness secondary to Complex migraine- improving - stroke workup negative and most likely complex migraines. Continue on NSAID p er Neurology recommendations. Will touch base on changing medications since patient still with GROVES and LE weakness - Neurology consultation appreciated - aspirin and statin - PT/OT/speech consultation appreciated - PT recommending ARU 2. HTN - BP improving - encouraged PO intake and hydration 3. Right calf tenderness - US negative for DVT 4. Disposition - Will touch base with Neuro regarding medications given patient still with GROVES and right sided weakness - CM on board for placement Result Diagram: 11/29/18 0604 11/29/18 0604 Subjective 24 Hr Interval Summary Free Text/Dictation Patient still complaining of right sided headache but states numbness and tingling have improved. Still with gait imbalance and difficulty walking. Exam/Review of Systems Exam Vitals Vital Signs Date Temp Pulse Resp B/P (MAP) Pulse Ox O2 O2 Flow FiO2 Time Delivery Rate 12/03/18 58 08:09 12/03/18 97.4 18 106/56 97 07:31 (73) 12/02/18 Room Air 15:14 Intake and Output 12/02/18 12/02/18 12/03/18 1515:00 23:00 07:00 IntakeIntake Total 600 ml BalanceBalance 600 ml Exam General: No acute distress. sitting in bed eating breakfast Lungs: Clear to auscultation bilaterally no crackles rales or wheezing Heart: Normal S1-S2, Regular rhythm and rate. No murmur, S3, or S4 Abdomen: Soft , nontender, nondistended , bowel sounds are present. No guarding no rebound tenderness Extremities: moving all extremities. no edema, cyanosis, or clubbing Neurologic: Normal mental status, speech normal, cranial nerves II through XII are intact, improved sensation right side of face. Strength 4/5 in right upper and 3/5 lower extremities. 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 5/5 LUE and LLE, sensation intact right side. Medications Medication Current Medications Aspirin (Halfprin) 81 mg DAILY PO Last administered on 12/03/18 08:38; Admin Dose 81 MG; Start 11/29/18 at 09:00 Enalapril Maleate (Vasotec) 20 mg BID PO Last administered on 12/03/18 08:39; Admin Dose 20 MG; Start 11/28/18 at 23:00 Hydrochlorothiazide (Hydrochlorothiazide) 25 mg DAILY PO Last administered on 12/03/18 08:39; Admin Dose 25 MG; Start 11/29/18 at 09:00 IV Flush (NS 3 ml) 3 ml PER PROTOCOL IV ; Start 11/28/18 at 22:00 Ondansetron HCl (Zofran Inj) 4 mg Q6H PRN IV NAUSEA/VOMITING; Start 11/28/18 at 22:00 Acetaminophen (Tylenol Tab) 650 mg Q6H PRN PO .PAIN 1-3 OR TEMP Last administe red on 12/02/18 15:41; Admin Dose 650 MG; Start 11/28/18 at 22:00 Docusate Sodium (Colace) 100 mg Q12H PRN PO .CONSTIPATION; Start 11/28/18 at 22:00 Bisacodyl (Dulcolax) 5 mg DAILY PRN PO .CONSTIPATION; Start 11/28/18 at 22:00 Ceftriaxone Sodium 50 ml @ 100 mls/hr Q24H IVPB Last administered on 12/02/18 21:35; Admin Dose 100 MLS/HR; Start 11/28/18 at 22:30 Hydralazine HCl (Apresoline) 10 mg Q4H PRN IV ELEVATED BLOOD PRESSURE; Start 11/28/18 at 22:00 Morphine Sulfate (morphine) 1 mg Q4H PRN IV SEVERE PAIN LEVEL 7-10; Start 11/29/18 at 02:30 Diltiazem HCl (Cardizem) 90 mg TID PO Last administered on 12/02/18 21:09; Admin Dose 90 MG; Start 11/29/18 at 09:00 Gabapentin (Neurontin) 300 mg DAILY PO Last administered on 12/03/18 08:38; Admin Dose 300 MG; Start 11/29/18 at 09:00 Metoprolol Tartrate (Lopressor) 100 mg TID PO Last administered on 5/4/19at 21:09; Admin Dose 100 MG; Start 11/29/18 at 09:00 Naproxen (Naprosyn) 250 mg BID PO Last administered on 12/03/18 08:38; Admin Dose 250 MG; Start 11/30/18 at 21:00 Pantoprazole (Protonix Tab) 40 mg DAILY@06 PO Last administered on 12/03/18 05:42; Admin Dose 40 MG; Start 12/01/18 at 06:00 SHAAN FUCHS MD December 03, 2018 10:16
[2018-12-03] MEDS: ACETAMINOPHEN 325 MG TAB PO PRN (11:39)
--- NOTE | 2018-12-03 13:46 | CONS ---
Assessment/Plan Assessment/Plan Hospital Course 48 yo F with hx of HTN who presents for evaluation of R hemiparesis, hemisensory loss, and other sx... for which neurology is consulted. Most clinically consistent with complex migraine. MRI brain was reassuringly negative for acute intracranial pathology. MRA H/N was the same. P: Continue Naproxen (with protonix) for pain, as needed PT/OT as necessary Other medical management and supportive care per primary Will follow clinically Consultation Date/Type/Reason Admit Date/Time Nov 28, 2018 at 21:21 Type of Consult Neurology Reason for Consultation weakness and h/a Requesting Provider: EAN GIL Date/Time of Note DATE: 12/03/18 TIME: 13:46 24 HR Interval Summary Free Text/Dictation Continues acute care Exam Vital Signs Vitals Vital Signs Date Temp Pulse Resp B/P (MAP) Pulse Ox O2 O2 Flow FiO2 Time Delivery Rate 12/03/18 77 12:31 12/03/18 98.1 17 121/66 96 11:33 (84) 12/02/18 Room Air 15:14 Intake and Output 12/02/18 12/02/18 12/03/18 1515:00 23:00 07:00 IntakeIntake Total 600 ml BalanceBalance 600 ml Exam PE: Gen Appearance: No Apparent Distress HEENT: Normocephalic Cardiovascular: Regular rate Lungs: Clear bilaterally Abdomen: Soft Extremities: Dry NE: The patient was alert and oriented. Language was normal. Fund of knowledge was normal. Pupils were equal and reactive to light. There was no afferent pupillary defect. Visual cruz were normal. Funduscopic examination was limited. Extra-ocular movements were full. Ptosis was absent. There was no nystagmus. Facial sensation was normal. Face was symmetric with normal strength. Hearing was intact. Palate movements were normal. Neck strength was normal. There was normal tongue bulk and speed of movement. Tone was normal. Muscle bulk was normal. I did not see fasciculations. Arms and legs were strong. Vibration sensation was normal. Temperature and pinprick sensation was normal. Rapid alternating movements were normal. There was no dysmetria. There was no intention tremor. Gait was deferred due to bedrest. Arm and leg reflexes were 2+ and symmetric. Dowell's sign was absent. Plantar responses were flexor. MOLLY FISHER December 03, 2018 13:46
[2018-12-03] MEDS ORDERED: KETOROLAC 30 MG INJ IV STA (15:46)
[2018-12-03] MEDS: CEFTRIAXONE 1 GM/50 ML (PMX) 50 ML IVPB SCH (21:33)
[2018-12-04] VITALS (12 sets, daily range): BP systolic 96–105; BP diastolic 50–68; PULSE 49–86; RESP 16–18
[2018-12-04] MEDS: PANTOPRAZOLE (EC) 40 MG TAB PO SCH (05:56)
[2018-12-04] MEDS: ASPIRIN (EC) 81 MG TAB PO SCH (09:08)
[2018-12-04] MEDS: HYDROCHLOROTHIAZIDE 25 MG TAB PO SCH (09:08)
[2018-12-04] MEDS: GABAPENTIN 300 MG CAP PO SCH (09:09)
[2018-12-04] MEDS: ENALAPRIL 20 MG TAB PO SCH (09:09)
[2018-12-04] MEDS: METOPROLOL 100 MG TAB PO SCH ×3 (09:09→21:22)
[2018-12-04] MEDS: NAPROXEN 250 MG TAB PO SCH ×2 (09:09→21:20)
[2018-12-04] MEDS: DILTIAZEM 90 MG TAB PO SCH ×3 (09:09→21:21)
[2018-12-04] MEDS: ENOXAPARIN 40 MG/0.4 ML SYG SC SCH (09:18)
--- NOTE | 2018-12-04 15:18 | CONS ---
Assessment/Plan Assessment/Plan Hospital Course 48 yo F with hx of HTN who presents for evaluation of R hemiparesis, hemisensory loss, and other sx... for which neurology is consulted. Most clinically consistent with complex migraine. MRI brain was reassuringly negative for acute intracranial pathology. MRA H/N was the same. P: Continue Naproxen (with protonix) for pain, as needed PT/OT as necessary Other medical management and supportive care per primary Will follow clinically Consultation Date/Type/Reason Admit Date/Time Nov 28, 2018 at 21:21 Type of Consult Neurology Reason for Consultation R hemiparesis, hemisensory loss Requesting Provider: EAN GIL Date/Time of Note DATE: 12/04/18 TIME: 15:18 24 HR Interval Summary Free Text/Dictation Continues acute care. Pt states that her R arm has significantly improved. Exam Vital Signs Vitals Vital Signs Date Temp Pulse Resp B/P (MAP) Pulse Ox O2 O2 Flow FiO2 Time Delivery Rate 12/04/18 97.9 61 18 96/50 (65) 97 12:06 12/02/18 Room Air 15:14 Intake and Output 12/03/18 12/03/18 12/04/18 1515:00 23:00 07:00 IntakeIntake Total 650 ml 600 ml 230 ml BalanceBalance 650 ml 600 ml 230 ml Exam PE: Gen Appearance: No Apparent Distress HEENT: Normocephalic Cardiovascular: Regular rate Lungs: Clear bilaterally Abdomen: Soft Extremities: Dry NE: The patient was alert and oriented. Language was normal. Fund of knowledge was normal. Pupils were equal and reactive to light. There was no afferent pupillary defect. Visual cruz were normal. Funduscopic examination was limited. Extra-ocular movements were full. Ptosis was absent. There was no nystagmus. Facial sensation was normal. Face was symmetric with normal strength. Hearing was intact. Palate movements were normal. Neck strength was normal. There was normal tongue bulk and speed of movement. Tone was normal. Muscle bulk was normal. I did not see fasciculations. Arms and legs were strong. Vibration sensation was normal. Temperature and pinprick sensation was normal. Rapid alternating movements were normal. There was no dysmetria. There was no intention tremor. Gait was deferred due to bedrest. Arm and leg reflexes were 2+ and symmetric. Dowell's sign was absent. Plantar responses were flexor. PAPO FISHER NP December 04, 2018 15:18
--- NOTE | 2018-12-04 17:39 | PN ---
Date/Time of Note Date/Time of Note DATE: 12/04/18 TIME: 17:38 Assessment/Plan VTE Prophylaxis Risk score (from Ns)>0 risk: 3 SCD applied (from Ns): Yes SCD contraindicated: low risk/ambulating Pharmacological prophylaxis: LMWH Lines/Catheters IV Catheter Type (from Nrs): Peripheral IV Urinary Cath still in place: No Assessment/Plan Hospital Course Assessment plan 1. Complex migraine, stable continue therapy. Follow-up with neurology 2. Axillary hypertension stable improved 3. History of TIA? Subjective: Events noted Objective: Vital signs stable sinus rhythm Physical exam No pallor adenopathy Regular Clear Benign No edema Grossly nonfocal Result Diagram: 12/04/1862212/04/18622 Results 24hrs Laboratory Tests Test 12/04/18 06:23 White Blood Count 7.1 Red Blood Count 4.94 Hemoglobin 14.6 Hematocrit 43.2 Mean Corpuscular Volume 87.4 Mean Corpuscular Hemoglobin 29.6 Mean Corpuscular Hemoglobin Concent 33.8 Red Cell Distribution Width 12.8 Platelet Count 135 L Mean Platelet Volume 12.2 H Immature Granulocytes % 0.100 Neutrophils % 50.6 Lymphocytes % 35.6 Monocytes % 7.2 Eosinophils % 6.1 Basophils % 0.4 Nucleated Red Blood Cells % 0.0 Immature Granulocytes # 0.010 Neutrophils # 3.6 Lymphocytes # 2.5 Monocytes # 0.5 Eosinophils # 0.4 Basophils # 0.0 Nucleated Red Blood Cells # 0.0 Sodium Level 141 Potassium Level 3.8 Chloride Level 103 Carbon Dioxide Level 29 Anion Gap 9 Blood Urea Nitrogen 22 H Creatinine 0.86 Glucose Level 102 Calcium Level 9.5 Phosphorus Level 4.8 Magnesium Level 2.1 Albumin 3.7 Exam/Review of Systems Exam Vitals Vital Signs Date Temp Pulse Resp B/P (MAP) Pulse Ox O2 O2 Flow FiO2 Time Delivery Rate 12/04/18 68 16:00 12/04/18 97.6 18 100/55 97 15:57 (70) 12/02/18 Room Air 15:14 Intake and Output 12/03/18 12/03/18 12/04/18 1515:00 23:00 07:00 IntakeIntake Total 650 ml 600 ml 230 ml BalanceBalance 650 ml 600 ml 230 ml Results Results 24hrs Laboratory Tests Test 12/04/18 06:23 White Blood Count 7.1 Red Blood Count 4.94 Hemoglobin 14.6 Hematocrit 43.2 Mean Corpuscular Volume 87.4 Mean Corpuscular Hemoglobin 29.6 Mean Corpuscular Hemoglobin Concent 33.8 Red Cell Distribution Width 12.8 Platelet Count 135 L Mean Platelet Volume 12.2 H Immature Granulocytes % 0.100 Neutrophils % 50.6 Lymphocytes % 35.6 Monocytes % 7.2 Eosinophils % 6.1 Basophils % 0.4 Nucleated Red Blood Cells % 0.0 Immature Granulocytes # 0.010 Neutrophils # 3.6 Lymphocytes # 2.5 Monocytes # 0.5 Eosinophils # 0.4 Basophils # 0.0 Nucleated Red Blood Cells # 0.0 Sodium Level 141 Potassium Level 3.8 Chloride Level 103 Carbon Dioxide Level 29 Anion Gap 9 Blood Urea Nitrogen 22 H Creatinine 0.86 Glucose Level 102 Calcium Level 9.5 Phosphorus Level 4.8 Magnesium Level 2.1 Albumin 3.7 Medications Medication Current Medications Aspirin (Halfprin) 81 mg DAILY PO Last administered on 12/04/18 09:08; Admin Dose 81 MG; Start 11/29/18 at 09:00 Enalapril Maleate (Vasotec) 20 mg BID PO Last administered on 12/04/18 09:09; Admin Dose 20 MG; Start 11/28/18 at 23:00 Hydrochlorothiazide (Hydrochlorothiazide) 25 mg DAILY PO Last administered on 12/04/18 09:08; Admin Dose 25 MG; Start 11/29/18 at 09:00 IV Flush (NS 3 ml) 3 ml PER PROTOCOL IV ; Start 11/28/18 at 22:00 Ondansetron HCl (Zofran Inj) 4 mg Q6H PRN IV NAUSEA/VOMITING; Start 11/28/18 at 22:00 Acetaminophen (Tylenol Tab) 650 mg Q6H PRN PO .PAIN 1-3 OR TEMP Last administered on 12/03/18at 11:39; Admin Dose 650 MG; Start 11/28/18 at 22:00 Docusate Sodium (Colace) 100 mg Q12H PRN PO .CONSTIPATION; Start 11/28/18 at 22 :00 Bisacodyl (Dulcolax) 5 mg DAILY PRN PO .CONSTIPATION; Start 11/28/18 at 22:00 Ceftriaxone Sodium 50 ml @ 100 mls/hr Q24H IVPB Last administered on 12/03/18at 21:33; Admin Dose 100 MLS/HR; Start 11/28/18 at 22:30 Hydralazine HCl (Apresoline) 10 mg Q4H PRN IV ELEVATED BLOOD PRESSURE; Start 11/28/18 at 22:00 Morphine Sulfate (morphine) 1 mg Q4H PRN IV SEVERE PAIN LEVEL 7-10 Last administered on 12/04/18 11:22; Admin Dose 1 MG; Start 11/29/18 at 02:30 Diltiazem HCl (Cardizem) 90 mg TID PO Last administered on 12/04/18 09:09; Admin Dose 90 MG; Start 11/29/18 at 09:00 Gabapentin (Neurontin) 300 mg DAILY PO Last administered on 12/04/18 09:09; Admin Dose 300 MG; Start 11/29/18 at 09:00 Metoprolol Tartrate (Lopressor) 100 mg TID PO Last administered on 12/04/18 09:09; Admin Dose 100 MG; Start 11/29/18 at 09:00 Naproxen (Naprosyn) 250 mg BID PO Last administered on 12/04/18 09:09; Admin Do se 250 MG; Start 11/30/18 at 21:00 Pantoprazole (Protonix Tab) 40 mg DAILY@06 PO Last administered on 12/04/18 05:56; Admin Dose 40 MG; Start 12/01/18 at 06:00 Enoxaparin Sodium (Lovenox) 40 mg DAILY SC Last administered on 12/04/18 09:18; Admin Dose 40 MG; Start 12/04/18 at 09:00 SENYD TALAMANTES MD December 04, 2018 17:39
[2018-12-05 02:03] VITALS: BP 93/55; PULSE 54; RESP 18
[2018-12-05] MEDS: ACETAMINOPHEN 325 MG TAB PO PRN (07:51)
[2018-12-05 09:03] VITALS: BP 117/60; RESP 18
[2018-12-05] MEDS: ASPIRIN (EC) 81 MG TAB PO SCH (09:08)
[2018-12-05] MEDS: HYDROCHLOROTHIAZIDE 25 MG TAB PO SCH (09:08)
[2018-12-05] MEDS: METOPROLOL 100 MG TAB PO SCH ×2 (09:08→20:15)
[2018-12-05] MEDS: FAMOTIDINE 20 MG TAB PO SCH (09:08)
[2018-12-05] MEDS: GABAPENTIN 300 MG CAP PO SCH (09:08)
[2018-12-05] MEDS: ENOXAPARIN 40 MG/0.4 ML SYG SC SCH (09:09)
[2018-12-05] MEDS: DILTIAZEM 90 MG TAB PO SCH ×3 (10:30→20:15)
[2018-12-05] MEDS: ENALAPRIL 20 MG TAB PO SCH (10:30)
[2018-12-05 10:50] VITALS: BP 105/71; PULSE 54; RESP 18
[2018-12-05] MEDS: NAPROXEN 500 MG TAB PO SCH ×2 (10:52→20:15)
--- NOTE | 2018-12-05 15:18 | CONS ---
Assessment/Plan Assessment/Plan Hospital Course 48 yo F with hx of HTN who presents for evaluation of R hemiparesis, hemisensory loss, and other sx... for which neurology is consulted. Most clinically consistent with complex migraine. MRI brain was reassuringly negative for acute intracranial pathology. MRA H/N was the same. P: Continue Naproxen (with protonix) for pain, as needed PT/OT as necessary Other medical management and supportive care per primary Will follow clinically Consultation Date/Type/Reason Admit Date/Time Nov 28, 2018 at 21:21 Type of Consult Neurology Reason for Consultation R hemiparesis, hemisensory loss Requesting Provider: EAN GIL Date/Time of Note DATE: 12/05/18 TIME: 15:18 24 HR Interval Summary Free Text/Dictation Continues acute care. Exam Vital Signs Vitals Vital Signs Date Temp Pulse Resp B/P (MAP) Pulse Ox O2 O2 Flow FiO2 Time Delivery Rate 12/05/18 54 18 105/71 10:50 (82) 12/05/18 97.6 99 Room Air 09:03 Intake and Output 12/04/18 12/04/18 12/05/18 1515:00 23:00 07:00 IntakeIntake Total 900 ml 240 ml OutputOutput Total 700 ml BalanceBalance 200 ml 240 ml Exam PE: Gen Appearance: No Apparent Distress HEENT: Normocephalic Cardiovascular: Regular rate Lungs: Clear bilaterally Abdomen: Soft Extremities: Dry NE: The patient was alert and oriented. Language was normal. Fund of knowledge was normal. Pupils were equal and reactive to light. There was no afferent pupillary defect. Visual cruz were normal. Funduscopic examination was limited. Extra-ocular movements were full. Ptosis was absent. There was no nystagmus. Facial sensation was normal. Face was symmetric with normal strength. Hearing was intact. Palate movements were normal. Neck strength was normal. There was normal tongue bulk and speed of movement. Tone was normal. Muscle bulk was normal. I did not see fasciculations. Arms and legs were strong. Vibration sensation was normal. Temperature and pinprick sensation was normal. Rapid alternating movements were normal. There was no dysmetria. There was no intention tremor. Gait was deferred due to bedrest. Arm and leg reflexes were 2+ and symmetric. Dowell's sign was absent. Plantar responses were flexor. PAPO FISHER NP December 05, 2018 15:18
[2018-12-05 15:21] VITALS: BP 116/69; PULSE 60; RESP 18
--- NOTE | 2018-12-05 16:01 | PN ---
Date/Time of Note Date/Time of Note DATE: 12/05/18 TIME: 16:00 Assessment/Plan VTE Prophylaxis Risk score (from Nsg)>0 risk: 3 SCD applied (from Nsg): Yes SCD contraindicated: low risk/ambulating Pharmacological prophylaxis: LMWH Lines/Catheters IV Catheter Type (from Nrsg): Saline Lock Urinary Cath still in place: No Assessment/Plan Hospital Course Assessment plan 1. Complex migraine, stable cont therapy. Follow-up with neurology 2. Axillary hypertension stable improved 3. History of TIA? 4. Debility deconditioning. refused ARU/ SNF. Will arrange outpatient follow-up with PT and DME S; 12/04 events /: Participating with PT. O: Vital signs stable sinus rhythm Physical exam No pallor droop Regular Clear Benign No edema Grossly nonfocal Result Diagram: 12/04/1862212/04/18622 Exam/Review of Systems Exam Vitals Vital Signs Date Temp Pulse Resp B/P (MAP) Pulse Ox O2 O2 Flow FiO2 Time Delivery Rate 12/05/18 97.5 60 18 116/69 96 Room Air 15:21 (85) Intake and Output 12/04/18 12/04/18 12/05/18 1515:00 23:00 07:00 IntakeIntake Total 900 ml 240 ml OutputOutput Total 700 ml BalanceBalance 200 ml 240 ml Medications Medication Current Medications Aspirin (Halfprin) 81 mg DAILY PO Last administered on 12/05/18at 09:08; Admin Dose 81 MG; Start 11/29/18 at 09:00 Hydrochlorothiazide (Hydrochlorothiazide) 25 mg DAILY PO Last administered on 12/05/18at 09:08; Admin Dose 25 MG; Start 11/29/18 at 09:00 IV Flush (NS 3 ml) 3 ml PER PROTOCOL IV ; Start 11/28/18 at 22:00 Ondansetron HCl (Zofran Inj) 4 mg Q6H PRN IV NAUSEA/VOMITING; Start 11/28/18 at 22:00 Acetaminophen (Tylenol Tab) 650 mg Q6H PRN PO .PAIN 1-3 OR TEMP Last administered on 12/05/18at 07:51; Admin Dose 650 MG; Start 11/28/18 at 22:00 Docusate Sodium (Colace) 100 mg Q12H PRN PO .CONSTIPATION; Start 11/28/18 at 22:00 Bisacodyl (Dulcolax) 5 mg DAILY PRN PO .CONSTIPATION; Start 11/28/18 at 22:00 Hydralazine HCl (Apresoline) 10 mg Q4H PRN IV ELEVATED BLOOD PRESSURE; Start 11/28/18 at 22:00 Morphine Sulfate (morphine) 1 mg Q4H PRN IV SEVERE PAIN LEVEL 7-10 Last administered on 12/04/18at 11:22; Admin Dose 1 MG; Start 11/29/18 at 02:30 Diltiazem HCl (Cardizem) 90 mg TID PO Last administered on 12/04/18 21:21; Admin Dose 90 MG; Start 11/29/18 at 09:00 Gabapentin (Neurontin) 300 mg DAILY PO Last administered on 12/05/18 09:08; Admin Dose 300 MG; Start 11/29/18 at 09:00 Enoxaparin Sodium (Lovenox) 40 mg DAILY SC Last administered on 12/05/18at 09:09; Admin Dose 40 MG; Start 12/04/18 at 09:00 Enalapril Maleate (Vasotec) 20 mg DAILY PO ; Start 12/05/18 at 09:00 Metoprolol Tartrate (Lopressor) 100 mg BID PO Last administered on 12/05/18at 09:08; Admin Dose 100 MG; Start 12/04/18 at 21:00 Famotidine (Pepcid) 20 mg DAILY PO Last administered on 12/05/18 09:08; Admin Dose 20 MG; Start 12/05/18 at 09:00 Naproxen (Naprosyn) 250 mg BID PO Last administered on 12/05/18at 10:52; Admin Dose 250 MG; Start 12/05/18 at 10:00 SENDY TALAMANTES MD December 05, 2018 16:01
[2018-12-05 19:21] VITALS: BP 109/59; PULSE 76; RESP 18
[2018-12-06 01:25] VITALS: BP 94/50; PULSE 54; RESP 16
[2018-12-06] MEDS: ACETAMINOPHEN 325 MG TAB PO PRN (01:30)
[2018-12-06 07:59] VITALS: BP 96/56; PULSE 74; RESP 17
[2018-12-06] MEDS: ENALAPRIL 20 MG TAB PO SCH (09:00)
[2018-12-06] MEDS: METOPROLOL 100 MG TAB PO SCH (09:00)
[2018-12-06] MEDS: DILTIAZEM 90 MG TAB PO SCH ×2 (09:00→13:25)
[2018-12-06] MEDS: HYDROCHLOROTHIAZIDE 25 MG TAB PO SCH (09:00)
[2018-12-06] MEDS: GABAPENTIN 300 MG CAP PO SCH (09:04)
[2018-12-06] MEDS: ASPIRIN (EC) 81 MG TAB PO SCH (09:04)
[2018-12-06] MEDS: FAMOTIDINE 20 MG TAB PO SCH (09:04)
[2018-12-06] MEDS: NAPROXEN 500 MG TAB PO SCH (09:05)
[2018-12-06] MEDS: ENOXAPARIN 40 MG/0.4 ML SYG SC SCH (09:09)
[2018-12-06 11:10] VITALS: BP 104/59; PULSE 71; RESP 18
[2018-12-06 14:01] VITALS: BP 112/69; PULSE 62; RESP 18
--- NOTE | 2018-12-06 14:09 | PDOCDIS ---
Discharge Instructions CONDITION [id number] Patient Condition: Phrlx6y Fair HOME CARE INSTRUCTIONS: [id number] Diet Instructions: [id number] Regular ACTIVITY: [id number] Activity Restrictions: [id number] Slowly Increase Activity Do not Drive FOLLOW UP/APPOINTMENTS Follow-up Plan appt pcp & Dr Bravo 1-2wks SENDY TALAAMNTES MD December 06, 2018 14:09
[2018-12-06] MEDS ORDERED: METO-407 PO (14:11)
[2018-12-06] MEDS ORDERED: FAMO20TA18 PO (14:11)
[2018-12-06] MEDS ORDERED: NAPR-985 PO (14:11)
[2018-12-06] MEDS ORDERED: ACET325T33 PO (14:11)
[2018-12-06] MEDS ORDERED: CARSR90 PO (14:12)
--- NOTE | 2018-12-06 16:03 | DS ---
Date/Time of Note Date/Time of Note DATE: 12/06/18 TIME: 16:01 Discharge Summary Admission/Discharge Info Admit Date/Time Nov 28, 2018 at 21:21 Discharge Date/Time Patient Condition: Stable Consults Dr Bravo Procedures Chest x-ray, CAT scan of the brain, venous ultrasound bilateral lower extremities, MRI brain, MRA brain, MRA neck: No acute process CT neck IMPRESSION: 1. No evidence of fracture. 2. Mild reversal of the cervical lordosis with trace anterolisthesis at C2-3, C3-4 and C4-5. 3. Mild cervical spondylosis/degenerative enthesopathy as described above. Hx of Present Illness 40-year-old female admitted with right-sided deficits possible droop with concern of stroke Hospital Course Hospitalist coverage Hospital course Concern for stroke. Imaging negative. Seen by neurology. At this point our diagnosis is complex migraine. Patient's symptoms have improved however she has some right lower extremity pains. Stable for for discharge home. DME arranged. Refused SNF etc. Presently on beta-kilo calcium channel kilo Neurontin. I discontinued her ARB and diuretic. Assessment plan 1. Complex migraine, stable cont therapy. Follow-up with neurology 2. Ess hypertension stable improved 3. History of TIA? 4. Debility deconditioning. refused ARU/ SNF. Will arrange outpatient follow-up with PT and DME S; 5/6 events noted /7: Participating with PT. /8: No events O: Vital signs stable sinus rhythm Physical exam No pallor droop Regular Clear Benign No edema Grossly nonfocal Home Meds Active Scripts Diltiazem Hcl* (Cardizem SR*) 90 Mg Capsr, 90 MG PO TID for 10 Days, #30 CAP Prov:SENDY TALAMANTES MD 12/06/18 Famotidine* (Famotidine*) 20 Mg Tablet, 20 MG PO DAILY for 7 Days, TAB otc Prov:SENDY TALAMANTES MD 12/06/18 Naproxen* (Naprosyn*) 500 Mg Tablet, 250 MG PO BID for 10 Days, #20 TAB Prov:SENDY TALAMANTES MD 12/06/18 Acetaminophen* (Tylenol*) 325 Mg Tablet, 650 MG PO Q6H PRN for .PAIN 1-3 OR TEMP for 10 Days, TAB Prov:SENDY TALAMANTES MD 12/06/18 Metoprolol Tartrate* (Lopressor*) 100 Mg Tablet, 100 MG PO BID for 10 Days, #20 TAB Prov:SENDY TALAMANTES MD 12/06/18 Ibuprofen* (Motrin*) 800 Mg Tab, 800 MG PO Q6H PRN for PAIN AND OR ELEVATED TEMP, #30 TAB Prov:HELEN FRANCISCO DO 08/01/18 Reported Medications Gabapentin* (Gabapentin*) 300 Mg Capsule, 300 MG PO prn PRN for PAIN, #60 CAP 08/01/18 Aspirin* (Aspirin* EC) 81 Mg Tablet.dr, 81 MG PO DAILY, TAB 12/07/17 Discontinued Reported Medications Hydrochlorothiazide* (Hydrochlorothiazide*) 25 Mg Tab, 25 MG PO DAILY, #30 TAB 06/05/18 Metoprolol Tartrate* (Lopressor*) 100 Mg Tablet, 100 MG PO TID, #60 TAB 06/05/18 Enalapril Maleate* (Enalapril Maleate*) 20 Mg Tablet, 20 MG PO BID, TAB 06/05/18 Follow-up Plan appt pcp & Dr Bravo 1-2wks Primary Care Provider [employer] Time spent on discharge: > 30 minutes SENDY TALAMANTES MD December 06, 2018 16:03
--- NOTE | 2018-12-06 17:11 | CONS ---
Assessment/Plan Assessment/Plan Hospital Course 48 yo F with hx of HTN who presents for evaluation of R hemiparesis, hemisensory loss, and other sx... for which neurology is consulted. Most clinically consistent with complex migraine. MRI brain was reassuringly negative for acute intracranial pathology. MRA H/N was the same. P: Continue Naproxen (with protonix) for pain, as needed PT/OT as necessary Other medical management and supportive care per primary Will sign off. Please call with Qs. Consultation Date/Type/Reason Admit Date/Time Nov 28, 2018 at 21:21 Type of Consult Neurology Reason for Consultation R hemiparesis, hemisensory loss Requesting Provider: EAN GIL Date/Time of Note DATE: 12/06/18 TIME: 16:56 24 HR Interval Summary Free Text/Dictation Continues acute care. Exam Vital Signs Vitals Vital Signs Date Temp Pulse Resp B/P (MAP) Pulse Ox O2 O2 Flow FiO2 Time Delivery Rate 12/06/18 97.9 62 18 112/69 96 14:01 (83) 12/06/18 Room Air 11:10 Intake and Output 12/05/18 12/05/18 12/06/18 1414:59 22:59 06:59 IntakeIntake Total 1000 ml 540 ml OutputOutput Total 151 ml BalanceBalance 1000 ml 389 ml Exam PE: Gen Appearance: No Apparent Distress HEENT: Normocephalic Cardiovascular: Regular rate Lungs: Clear bilaterally Abdomen: Soft Extremities: Dry NE: The patient was alert and oriented. Language was normal. Fund of knowledge was normal. Pupils were equal and reactive to light. There was no afferent pupillary defect. Visual cruz were normal. Funduscopic examination was limited. Extra-ocular movements were full. Ptosis was absent. There was no nystagmus. Facial sensation was normal. Face was symmetric with normal strength. Hearing was intact. Palate movements were normal. Neck strength was normal. There was normal tongue bulk and speed of movement. Tone was normal. Muscle bulk was normal. I did not see fasciculations. Arms and legs were strong. Vibration sensation was normal. Temperature and pinprick sensation was normal. Rapid alternating movements were normal. There was no dysmetria. There was no intention tremor. Gait was deferred due to bedrest. Arm and leg reflexes were 2+ and symmetric. Dowell's sign was absent. Plantar responses were flexor. PAPO FISHER NP December 06, 2018 17:11
== END 2018-12-06 18:29 | disposition home or self-care (01) | DRG 103 ==
LOC: E/R 16:20 → TEL 21:21 → MS1 12-04 22:32
PROVIDERS: ADMIT Family Medicine; ATTEND Internal Medicine
DX: G43.809 Other migraine, not intractable, without status migrainosus (principal); I16.1 Hypertensive emergency; G81.91 Hemiplegia, unspecified affecting right dominant side; E66.9 Obesity, unspecified; Z68.30 Body mass index [BMI] 30.0-30.9, adult; I10 Essential (primary) hypertension; R07.9 Chest pain, unspecified; M79.604 Pain in right leg
CPT/HCPCS: 36415; 70450; 70544; 70548; 70553; 71045; 71275; 72125; 80048; 80053; 80061; 80069; 80307; 81001; 82607; 82962; 83036; 83735; 84100; 84443; 84484; 85025; 85610; 85651; 85730; 93005; 93306; 93970; 96374; 96375; 97110; 97116; 97163; 97165; 97530; 97535; J0696; J1650; J1885; J2060; J2270; J2405; J7030; J7042; Q9967